=== PATIENT | female | born 1955 | race Hispanic/Latino ===

== ENCOUNTER 2017-08-13 22:05 | Inpatient (IN) | payer MEDICARE, BC ==
[~2017-08-13] VITALS: Ht 149.9 cm; Wt 74.1 kg
[~2017-08-13 22:05] MED LIST: AMLODIPINE PO; ASPIRIN81 M1 PO; ATENOLOL; HYDROCODON-ACE1 EA11 PO; IMDUR30 MG PO; NORVASC5 MG PO; OMEPRAZOLE; SENSIPAR; TRAMADOL; TRAMADOL-ACETAMI1 EA PO; XANAX0.25 MG PO
[2017-08-13] MEDS ORDERED: PANTOPRAZOLE 40 MG 10ML VIAL IV STA (22:19)
[2017-08-13] MEDS ORDERED: FUROSEMIDE INJ 10 MG/ML 2 ML VIAL IV PRN ×2 (22:30→23:15)
[2017-08-13] MEDS ORDERED: SODIUM CHLORIDE 0.9% 250ML 250 ML IV ONE ×3 (22:30→23:15)
[2017-08-13 22:46] LABS: BASOPHILS % 0.1 % (0.0-1.0); EOSINOPHILS % 0.1 % (0.0-6.0); LYMPHOCYTES # (AUTO) 1.7 (1.0-3.2); LYMPHOCYTES % 6.3 % (18.0-39.1); MEAN CORPUSCULAR HEMOGLOBIN 29.1 pg (28-32); MEAN CORPUSCULAR HGB CONC 31.2 g/dL (31-35); MEAN CORPUSCULAR VOLUME 93.3 fL (81-99); MONOCYTES # (AUTO) 1.7 (0.2-0.8); MONOCYTES % 6.6 % (4.4-11.3); NEUTROPHILS # (AUTO) 22.1 (2.1-6.9); NEUTROPHILS % 85.1 % (38.7-80.0); PLATELET COUNT 397 x10e3/uL (140-360); RED BLOOD COUNT 1.34 x10e6/uL (3.6-5.1); RED CELL DISTRIBUTION WIDTH 18.9 % (11.7-14.4)
--- NOTE | 2017-08-13 22:53 | Diagnostic Imaging Report ---
CHEST SINGLE (PORTABLE), 08/13/2017 10:19 PM Technique: CHEST SINGLE (PORTABLE) Comparison: 07/09/2012. Clinical history: \S\GI BLEED, ESRD ON HD W/ LOW O2 SAT \S\20170813 \S\2230 Findings: See Impression. Left axillary vascular stent noted. Impression: 1. Mildly enlarged cardiomediastinal silhouette. Aortic calcifications. 2. Central vascular congestion. No consolidation. 3. No effusion or pneumothorax. 4. Interval erosive change and remodeling of the left humeral head. Consider follow up shoulder radiographs, as clinically warranted. Signed by: Dr Benita Mccall MD on 08/13/2017 10:49 PM
[2017-08-13 22:57] LABS: HEMATOCRIT 12.5 % (34.2-44.1); HEMOGLOBIN 3.9 g/dL (12.0-16.0)
[2017-08-13 23:02] LABS: INR 2.06; PROTHROMBIN TIME 21.8 seconds (11.9-14.5)
[2017-08-13 23:03] LABS: PARTIAL THROMBOPLASTIN TIME 40.2 seconds (23.8-35.5)
[2017-08-13 23:09] LABS: ALBUMIN 2.2 g/dL (3.5-5.0); ALBUMIN/GLOBULIN RATIO 0.6 (0.8-2.0); ANION GAP 27.3 mmol/L (8-16); CALCIUM 8.5 mg/dL (8.4-10.2); CREATINE KINASE MB 3.4 ng/mL (0-5.0); CREATININE, SERUM 5.86 mg/dL (0.57-1.11); MAGNESIUM 1.4 MG/DL (1.3-2.1)
[2017-08-13] MEDS ORDERED: LOSARTAN POTAS100 MG PO (23:09)
[2017-08-13] MEDS ORDERED: AMLODIPINE BESY10 MG PO (23:09)
[2017-08-13] MEDS ORDERED: GABAPENTIN100 MG PO (23:09)
[2017-08-13] MEDS ORDERED: [UNRECOGNIZED DRUG - OTHER] PO (23:09)
[2017-08-13] MEDS ORDERED: CLONIDINE HCL0.1 MG PO (23:14)
[2017-08-13] MEDS ORDERED: ELIQUIS PO (23:14)
[2017-08-13] MEDS ORDERED: CITALOPRAM HBR20 MG PO (23:14)
[2017-08-13] MEDS ORDERED: OMEPRAZOLE40 MG PO (23:14)
[2017-08-13] MEDS ORDERED: CYMBALTA60 MG PO (23:14)
[2017-08-13] MEDS ORDERED: PRAVASTATIN SOD40 MG PO (23:14)
[2017-08-13] MEDS ORDERED: ZETIA10 MG PO (23:14)
[2017-08-13] MEDS ORDERED: SENSIPAR30 MG PO (23:14)
[2017-08-13] MEDS ORDERED: PLAVIX75 MG PO (23:14)
[2017-08-13 23:15] LABS: B-TYPE NATRIURETIC PEPTIDE2 870.6 pg/mL (0-100)
[2017-08-13 23:28] LABS: POTASSIUM 5.3 mmol/L (3.5-5.1)
[2017-08-13] MEDS ORDERED: SODIUM CHLORIDE 0.9% 1000ML 1,000 ML ONE (23:29)
[2017-08-13 23:37] LABS: ABG BASE EXCESS 23.8 mmol/L (-2 - 3); ABG HCO3 1 mmol/L (23-28); ABG PCO2 31 mmHg (41-51); ABG PO2 349 mmHg (80-105)
[2017-08-14] VITALS (102 sets, daily range): BP systolic 53–167; BP diastolic 24–107
[2017-08-14] MEDS ORDERED: CEFEPIME HCL 2 GM VIAL IV STA (00:28)
[2017-08-14] MEDS ORDERED: VANCOMYCIN 1GM/NS 250 ML 250 ML IV STA (00:28)
[2017-08-14 00:33] LABS: BAND NEUTROPHILS % (MANUAL) 1 %; LYMPHOCYTES % (MANUAL) 5 % (19-48); MONOCYTES % (MANUAL) 4 % (3.4-9.0); NEUTROPHILS % (MANUAL) 90 % (40-74); POLYCHROMASIA FEW
[2017-08-14 00:34] LABS: ANISOCYTOSIS MODERATE; HYPOCHROMASIA SLIGHT; PLATELET ESTIMATE SLIGHTLY INCREASED; PLATELET MORPHOLOGY COMMENT NORMAL; RBC MORPHOLOGY COMMENT ABNORMAL
[2017-08-14] MEDS ORDERED: PANTOPRAZOLE INJ 40 MG in SODIUM CHLORIDE 0.9% 50ML 50 ML IV STA (00:51)
[2017-08-14] MEDS ORDERED: PANTOPRAZOLE 40 MG 10ML VIAL ONE (01:28)
--- OUTSIDE RECORDS SUMMARY | 2017-08-14 01:31 | XMS REPORT ---
Author Author [facility] Address Unknown Phone Unavailable Care Team Providers Care Pneumatic Tester Name Role Phone BERNARD LOBO Unavailable Unavailable Problems This patient has no known problems. Allergies, Adverse Reactions, Alerts This patient has no known allergies or adverse reactions. Medications This patient has no known medications. Results Test Description Test Time Test Comments Text Results Atomic Results Result Comments CHEST SINGLE (PORTABLE) [place] [address] Patient Name: JULEE SCHMID MR #: [id number] : 1955 Age/Sex: 61/F Req #: [id number] Adm Physician: Ordered by: BERNARD LOBO MD Report #: [id number] Location: ER Room/Bed: Procedure: [id number] DX/CHEST SINGLE (PORTABLE) Exam Date: 08/13/17 Exam Time: 2230 REPORT STATUS: Signed CHEST SINGLE ( PORTABLE), 08/13/2017 10:19 PM Technique: CHEST SINGLE (PORTABLE) Comparison: 07/09/2012. Clinical history: S GI BLEED, ESRD ON HD W/ LOW O2 SAT S [id number] S 2230 Findings: See Impression. Left axillary vascular stent noted. Impression: 1. Mildly enlarged cardiomediastinal silhouette. Aortic calcifications. 2. Central vascular congestion. No consolidation. 3. No effusion or pneumothorax. 4. Interval erosive change and remodeling of the left humeral head. Consider follow up shoulder radiographs, as clinically warranted. Signed by: Dr Hadley Mccall MD on 10:49 PM Dictated By: HADLEY MCCALL MD 48 Transcribed By: HERNANDEZ on 08/13/172248 COPY TO: BERNARD LOBO MD
--- NOTE | 2017-08-14 01:44 | Diagnostic Imaging Report ---
History:AMS Comparison studies:None Technique: Axial images were obtained from the skull base to the vertex. Coronal and sagittal images reconstructed from the axial data. Intravenous contrast: None Findings: Scalp/skull: No abnormalities. Extra-axial spaces: No masses. No fluid collections. Brain sulci: Mildly prominent. Ventricles: Mild compensatory dilatation. No hydrocephalus. Parenchyma: Follow-up hypodensities in the supratentorial white matter are small vessel ischemic changes. Cortical encephalomalacic changes in the superomedial left occipital lobe are the result of an old left [employer] vascular insult. It is associated with regional volume loss and with gliotic changes in the underlying white matter No additional abnormal densities, masses, hemorrhage, acute or chronic cortical vascular insults. Sellar/suprasellar region: No abnormalities. Craniocervical junction: Patent foramen magnum. No Chiari one malformation. Incidental findings: Atherosclerotic calcifications in the carotid siphons and vertebral arteries. Impression: No acute abnormalities. Chronic findings: 1. Mild generalized volume loss. 2. Mild supratentorial white matter small vessel ischemic changes. 3. Cortical left [employer] vascular insult (superomedial occipital lobe) Signed by: Dr. Rodrick Powell M.D. on 08/14/2017 1:41 AM
[2017-08-14] MEDS ORDERED: SODIUM CHLORIDE 0.9% 250ML 250 ML ONE (03:44)
[2017-08-14] MEDS ORDERED: ACETAMINOPHEN 1000 MG/100 ML 100 ML IV ONE (06:12)
[2017-08-14] MEDS ORDERED: PANTOPRAZOL 40MG/SOD CHL 0.9% 50 ML IV ONE (06:36)
[2017-08-14] MEDS ORDERED: PANTOPRAZOLE 40 MG 10ML VIAL IV SCH (06:45)
[2017-08-14] MEDS: ACETAMINOPHEN 1000 MG/100 ML IV PRN ×2 (07:00→12:32)
[2017-08-14] MEDS: PANTOPRAZOL 40MG/SOD CHL 0.9% 50 ML IV SCH ×3 (07:00→17:00)
[2017-08-14] MEDS ORDERED: AMINOCAPROIC ACID IV SCH (09:00)
[2017-08-14] MEDS ORDERED: SODIUM CHLORIDE 0.9% IV SCH (09:00)
[2017-08-14 09:19] LABS: BASOPHILS % 0.2 % (0.0-1.0); EOSINOPHILS % 0.2 % (0.0-6.0); LYMPHOCYTES # (AUTO) 0.3 (1.0-3.2); LYMPHOCYTES % 1.6 % (18.0-39.1); MEAN CORPUSCULAR HGB CONC 34.1 g/dL (31-35); MEAN CORPUSCULAR VOLUME 90.8 fL (81-99); MONOCYTES # (AUTO) 0.5 (0.2-0.8); MONOCYTES % 2.7 % (4.4-11.3); NEUTROPHILS % 94.5 % (38.7-80.0); PLATELET COUNT 337 x10e3/uL (140-360); RED BLOOD COUNT 1.84 x10e6/uL (3.6-5.1); RED CELL DISTRIBUTION WIDTH 15.9 % (11.7-14.4)
[2017-08-14] MEDS ORDERED: NOREPINEPHRINE 8 MG/D5W 250 ML 250 ML IV PRN (09:19)
[2017-08-14 09:24] LABS: HEMATOCRIT 16.7 % (34.2-44.1); HEMOGLOBIN 5.7 g/dL (12.0-16.0)
[2017-08-14] MEDS ORDERED: NOREPINEPHRINE 8 MG/D5W 250 ML 250 ML ONE (09:26)
[2017-08-14] MEDS ORDERED: SODIUM CHLORIDE 0.9% 500ML 500 ML ONE (09:26)
[2017-08-14 09:40] LABS: INR 2.03; PROTHROMBIN TIME 21.6 seconds (11.9-14.5)
[2017-08-14 09:41] LABS: PARTIAL THROMBOPLASTIN TIME 43.6 seconds (23.8-35.5)
[2017-08-14 09:46] LABS: CREATINE KINASE MB 3.3 ng/mL (0-5.0)
--- NOTE | 2017-08-14 10:05 | Consultation ---
DATE OF CONSULTATION: August 14, 2017 REASON FOR CONSULTATION: History of AFib, patient on Plavix and Eliquis. CONSULTING PHYSICIAN: Dr. Hernandez HPI: This is a 61-year-old female that presented with complaint of dark stool. According to the patient and family at the bedside, she had dark tarry stool times 3 days and was brought to the emergency room for evaluation. She was recently discharged from [facility] after undergoing back surgery with Dr. Candelario. In the ER, she was found to have a hemoglobin of 3.1. She has a history of paroxysmal AFib and was on Plavix and Eliquis. She denies any chest pain, any palpitation, any diaphoresis or headache. Troponin was borderline. EKG showed normal sinus rhythm with no ST abnormalities. PAST MEDICAL HISTORY: Paroxysmal AFib; obesity; CHF; degenerative joint disease; end-stage renal disease, on dialysis; hypertension; chronic back pain; history of CVA; CAD; hyperlipidemia; and hyperparathyroidism. PAST SURGICAL HISTORY: Cholecystectomy, , left knee surgery, and recent back surgery. FAMILY HISTORY: Positive for diabetes. SOCIAL HISTORY: No smoking, no drinking. She lives at home with the family. MEDICATIONS: See med list. ALLERGIES: SHE IS ALLERGIC TO LORAZEPAM. REVIEW OF THE SYSTEMS: Negative except those mentioned above. PHYSICAL EXAMINATION: VITAL SIGNS: Temperature 97.9, heart rate 90, blood pressure 95/51, respiration 20, oxygen saturation 100% on 3 liters nasal cannula. GENERAL: She appears weak, lethargic, but alert and oriented. HEENT: Mucous membranes dry. NECK: Supple. LUNGS: Bilaterally clear to auscultation. CARDIOVASCULAR: S1 and S2 present. ABDOMEN: Soft. NEUROLOGICAL: Intact. EXTREMITIES: With no edema. LABS: Sodium 136, potassium 5.3, chloride 95, CO2 19, BUN 70, creatinine 5.86, glucose 88. White blood cell 26.0, hemoglobin 3.9, hematocrit 12.5, platelet 397,000. PT 21.8, PTT 40.2, INR 2.06. IMPRESSION: 1. Gastrointestinal bleed. 2. Anemia. 3. History of paroxysmal atrial fibrillation. 4. End-stage renal disease, on dialysis. 5. Borderline troponin. 6. Obesity. 7. History of coronary artery disease. ASSESSMENT AND PLAN: Her heart rate is in normal sinus rhythm with controlled rate. Eliquis and Plavix have been discontinued. She is getting blood transfusions. Jw osborne per hematology. Will go ahead and get an echo to reassess the LV and the valve function. Further cardiac workup pending clinical course. Thank you for this consultation. Dictated by: Garry Atkins NP Job#: [id number]
--- NOTE | 2017-08-14 11:21 | Consultation ---
DATE OF CONSULTATION: August 14, 2017 HISTORY OF PRESENT ILLNESS: I just discovered the patient is in the ICU and admitted. This 61-year-old female is well known to me. Recently discharged from [facility] with successful rehabilitation therapy and was on dialysis. She has end-stage renal disease. Came in with black stools that started yesterday. Found to have significantly low hemoglobin. She is on her 3rd unit of packed RBCs. Initial hemoglobin was 3.9, up to 5.7. She had PT of 21 with an INR of 2.06. Chemistry shows potassium 5.3, bicarbonate 19, creatinine 5.86. Chest x-ray relatively negative for any infiltrate or effusions. She is currently on oxygen, quite drowsy, arousable. Unable to get review of systems due to medical condition. No apparent respiratory distress. ALLERGIES: LORAZEPAM. SOCIAL HISTORY: Does not smoke or drink. Family by bedside. CURRENT MEDICATIONS: Patient on 3rd unit of packed RBCs and received Amicar once. She is on Protonix drip. She received 2 grams cefepime times 1. FAMILY HISTORY: Significant for hypertension. PAST HISTORY: Significant for end-stage renal disease, multiple comorbids, coronary artery disease, hypertension, secondary hyperparathyroidism, anemia of chronic kidney disease. PHYSICAL EXAMINATION GENERAL: Patient on oxygen, lying supine, in no apparent distress. VITALS: Blood pressure 94/44. Pulse rate 88. Afebrile. Oxygen saturation 100% on 100% nonrebreather. HEAD AND NECK: Corneas clear. Oral mucosa not examined. Neck veins slightly distended lying supine. LUNGS: End-expiratory rhonchi with scattered rales in lower third. HEART: S1 and S2 audible. ABDOMEN: Otherwise distended, soft, nontender. LOWER EXTREMITIES: No edema. IMPRESSION 1. Gastrointestinal bleed with anemia. 2. Coagulopathy. 3. Hypotension related to hemorrhage. 4. End-stage renal disease. 5. Hyperkalemia. PLAN: Stat urgent hemodialysis. Nurse notified. Will discuss with GI and cardiology. Please see orders. Thank you. Job#: [id number]
[2017-08-14] MEDS ORDERED: DIPHENHYDRAMINE HCL INJ 50 MG/ML VIAL IV ONE (11:26)
[2017-08-14] MEDS ORDERED: DIPHENHYDRAMINE HCL INJ 50 MG/ML VIAL ONE (11:26)
[2017-08-14 11:45] LABS: BAND NEUTROPHILS % (MANUAL) 4 %; LYMPHOCYTES % (MANUAL) 3 % (19-48); MONOCYTES % (MANUAL) 1 % (3.4-9.0); NEUTROPHILS % (MANUAL) 92 % (40-74); NUCLEATED RED BLOOD CELLS 1
[2017-08-14 11:46] LABS: ANISOCYTOSIS SLIGHT; HYPOCHROMASIA MODERATE; PLATELET ESTIMATE ADEQUATE; PLATELET MORPHOLOGY COMMENT FEW GIANT
[2017-08-14 11:47] LABS: POLYCHROMASIA FEW; RBC MORPHOLOGY COMMENT ABNORMAL
[2017-08-14 12:24] LABS: ANION GAP 19.4 mmol/L (8-16); CALCIUM 8.5 mg/dL (8.4-10.2); CREATININE, SERUM 5.97 mg/dL (0.57-1.11); POTASSIUM 5.4 mmol/L (3.5-5.1)
[2017-08-14] MEDS ORDERED: SODIUM CHLORIDE 0.9% 1000ML 2,000 ML ONE (13:15)
[2017-08-14] MEDS ORDERED: MANNITOL 25% 12.5GM/50ML 100 ML ONE (13:15)
[2017-08-14] MEDS ORDERED: ALBUMIN HUMAN 100 ML IV ONE (13:16)
[2017-08-14 13:32] LABS: HEMOGLOBIN 7.1 g/dL (12.0-16.0)
[2017-08-14 13:39] LABS: HEMATOCRIT 20.5 % (34.2-44.1)
[2017-08-14 15:40] LABS: BASOPHILS # (AUTO) 0.1 (0.0-0.1); BASOPHILS % 0.3 % (0.0-1.0); EOSINOPHILS # (AUTO) 0.1 (0.0-0.4); EOSINOPHILS % 0.2 % (0.0-6.0); HEMOGLOBIN 7.9 g/dL (12.0-16.0); LYMPHOCYTES # (AUTO) 0.7 (1.0-3.2); LYMPHOCYTES % 2.8 % (18.0-39.1); MEAN CORPUSCULAR HGB CONC 34.6 g/dL (31-35); MONOCYTES # (AUTO) 1.3 (0.2-0.8); MONOCYTES % 5.6 % (4.4-11.3); NEUTROPHILS # (AUTO) 21.7 (2.1-6.9); NEUTROPHILS % 90.1 % (38.7-80.0); PLATELET COUNT 585 x10e3/uL (140-360); RED BLOOD COUNT 2.63 x10e6/uL (3.6-5.1)
[2017-08-14 15:43] LABS: HEMATOCRIT 22.8 % (34.2-44.1)
[2017-08-14] MEDS ORDERED: METOPROLOL TARTRATE INJ 1 MG/ML VIAL IV PRN (17:30)
[2017-08-14] MEDS ORDERED: VANCOMYCIN 1GM/NS 250 ML 250 ML IV ONE (18:45)
[2017-08-14] MEDS ORDERED: CEFEPIME HCL 1 GM VIAL IV ONE (18:45)
[2017-08-14 19:25] LABS: CREATINE KINASE MB 1.9 ng/mL (0-4.3)
[2017-08-14 20:15] LABS: BASOPHILS # (AUTO) 0.1 (0.0-0.1); BASOPHILS % 0.4 % (0.0-1.0); EOSINOPHILS # (AUTO) 0.1 (0.0-0.4); EOSINOPHILS % 0.6 % (0.0-6.0); HEMOGLOBIN 7.6 g/dL (12.0-16.0); LYMPHOCYTES # (AUTO) 0.7 (1.0-3.2); MEAN CORPUSCULAR HEMOGLOBIN 30.6 pg (28-32); MEAN CORPUSCULAR HGB CONC 34.5 g/dL (31-35); MEAN CORPUSCULAR VOLUME 88.7 fL (81-99); MONOCYTES # (AUTO) 1.4 (0.2-0.8); MONOCYTES % 6.3 % (4.4-11.3); NEUTROPHILS # (AUTO) 19.7 (2.1-6.9); NEUTROPHILS % 89.1 % (38.7-80.0); PLATELET COUNT 473 x10e3/uL (140-360); RED BLOOD COUNT 2.48 x10e6/uL (3.6-5.1); RED CELL DISTRIBUTION WIDTH 16.2 % (11.7-14.4)
[2017-08-14] MEDS ORDERED: SODIUM CHLORIDE 0.9% 250ML 250 ML IV ONE (21:15)
[2017-08-14] MEDS ORDERED: CLONAZEPAM 0.5 MG TAB PO ONE (21:30)
[2017-08-15] VITALS (90 sets, daily range): BP systolic 82–150; BP diastolic 41–113
[2017-08-15] MEDS: PANTOPRAZOL 40MG/SOD CHL 0.9% 50 ML IV SCH ×6 (00:55→23:00)
[2017-08-15] MEDS: ACETAMINOPHEN/CODEINE 300MG - 30MG TAB PO PRN ×4 (02:12→23:09)
--- NOTE | 2017-08-15 04:19 | Consultation ---
DATE OF CONSULTATION: REASON FOR CONSULTATION: Leukocytosis, concern about sepsis. HISTORY OF PRESENT ILLNESS: This patient who is a 61-year-old female with history of obesity; history of end-stage renal disease, on hemodialysis. The patient was recently in the hospital in [place]. She then went to rehab. She went there, from there she went home, she was there for a few days. She came to emergency room at [facility] with altered status. Patient was admitted. According to the family, came early hours of August 14, I saw her in the evening. The patient was in the hospital where she had back surgery with Dr. Candelario as mentioned above, then she went to rehab. She is coming now with altered mental status. In the emergency room, she was evaluated. She had hemoglobin of 3.1. She received 4 units of blood and after the second one, she got fever and chills. The patient who is currently in the intensive care unit, on BiPAP, alert and follows command. She does have history of obesity, atrial fibrillation. She has been on Plavix and Eliquis. She also has history of congestive heart failure; degenerative joint disease; end-stage renal disease, on hemodialysis; hypertension; chronic back pain; history of CVA; history of coronary artery disease; history of hyperlipidemia; history of hyperparathyroidism. PAST SURGICAL HISTORY: Cholecystectomy, , left knee surgery, and recent back surgery as mentioned above. ALLERGIES: NKA. SOCIAL HISTORY: There is no smoking, drug abuse, alcohol abuse. FAMILY HISTORY: Hypertension. REVIEW OF SYSTEMS: At present time: HEENT: There is no headache or visual changes. No hearing changes. GI: There is currently no nausea, no vomiting, no diarrhea. CARDIAC: There is no arrhythmia. NEURO: No seizure activity. SKIN: There is no rash. LABORATORY DATA: Reviewed. Family at the bedside. Her daughter provided most of the history. I also reviewed her record. ALLERGIES: LORAZEPAM. IMPRESSION: 1. Gastrointestinal anemia. Continue blood transfusion. Gastroenterology has been consulted. 2. Leukocytosis, reactive. Concern about aspiration, concern about sepsis. Blood cultures have been ordered. Will put her on cefepime and vancomycin with her renal dose. 3. Congestive heart failure. 4. History of atrial fibrillation. 5. Discussed with the family. Discussed with the nurse. Will follow with you. Thank you so much for asking me to see this patient. Job#: [id number]
[2017-08-15 06:20] LABS: BASOPHILS # (AUTO) 0.1 (0.0-0.1); BASOPHILS % 0.3 % (0.0-1.0); EOSINOPHILS # (AUTO) 0.2 (0.0-0.4); HEMATOCRIT 24.3 % (34.2-44.1); HEMOGLOBIN 8.1 g/dL (12.0-16.0); LYMPHOCYTES # (AUTO) 0.6 (1.0-3.2); LYMPHOCYTES % 3.7 % (18.0-39.1); MEAN CORPUSCULAR HEMOGLOBIN 29.1 pg (28-32); MEAN CORPUSCULAR HGB CONC 33.3 g/dL (31-35); MEAN CORPUSCULAR VOLUME 87.4 fL (81-99); MONOCYTES # (AUTO) 1.4 (0.2-0.8); MONOCYTES % 8.2 % (4.4-11.3); NEUTROPHILS # (AUTO) 14.9 (2.1-6.9); NEUTROPHILS % 86.2 % (38.7-80.0); PLATELET COUNT 379 x10e3/uL (140-360); RED BLOOD COUNT 2.78 x10e6/uL (3.6-5.1); RED CELL DISTRIBUTION WIDTH 17.7 % (11.7-14.4)
[2017-08-15 06:52] LABS: ALBUMIN 2.4 g/dL (3.5-5.0); ALBUMIN/GLOBULIN RATIO 0.6 (0.8-2.0); ANION GAP 16.8 mmol/L (8-16); CALCIUM 8.5 mg/dL (8.4-10.2); CREATININE, SERUM 3.53 mg/dL (0.57-1.11); MAGNESIUM 1.7 MG/DL (1.3-2.1); POTASSIUM 3.8 mmol/L (3.5-5.1)
[2017-08-15] MEDS: SUCRALFATE 1 GM TAB PO SCH ×4 (07:30→20:47)
[2017-08-15] MEDS ORDERED: PHYTONADIONE 10 MG/ML AMP IV ONE (09:00)
--- NOTE | 2017-08-15 09:08 | Progress Note ---
DATE: August 15, 2017 TIME OF SERVICE: 7 a.m. OVERNIGHT: No events. REVIEW OF SYSTEMS: Patient denies any chest pain or shortness of breath. VITAL SIGNS: Reviewed. OBJECTIVE GENERAL: A tired-appearing woman resting in bed. HEENT: Anicteric. CARDIOVASCULAR: Normal S1 and S2. LUNGS: Moderate breath sounds. ABDOMEN: Soft, nontender, nondistended. EXTREMITIES: No edema. SKIN: Dry. PSYCHIATRIC: Normal affect. LABS: Reviewed. MEDICATIONS: Reviewed. ASSESSMENT AND PLAN: A 61-year-old woman. 1. Gastrointestinal bleed. 2. Coagulopathy. 3. Chronic atrial fibrillation. 4. End-stage renal disease on hemodialysis. 5. Severe normocytic anemia, status post 5 units of packed red blood cell transfusion. 6. Hyperbilirubinemia. 7. History of coronary artery disease. 8. Erosive changes of the left humeral head. 9. Sepsis. PLAN 1. Continue IV PPI. 2. Continue aminocaproic acid drip. 3. Continue sucralfate. 4. Continue IV cefepime and vancomycin. 5. All cultures remain negative. 6. Monitor closely in the ICU. 7. Dialysis planned for today. 8. I will discuss the case with the patient and family member at the bedside. Critical care time more than 35 minutes. Job#: [id number]
[2017-08-15] MEDS ORDERED: PHYTONADIONE 10MG/ML 10 MG in SODIUM CHLORIDE 0.9% 50ML 50 ML IV ONE (10:30)
[2017-08-15 10:41] LABS: MEAN CORPUSCULAR VOLUME 86.7 fL (81-99)
[2017-08-15 11:55] LABS: BASOPHILS % 0.2 % (0.0-1.0); EOSINOPHILS # (AUTO) 0.3 (0.0-0.4); EOSINOPHILS % 1.7 % (0.0-6.0); HEMATOCRIT 24.9 % (34.2-44.1); HEMOGLOBIN 8.5 g/dL (12.0-16.0); LYMPHOCYTES # (AUTO) 0.8 (1.0-3.2); LYMPHOCYTES % 4.4 % (18.0-39.1); MEAN CORPUSCULAR HEMOGLOBIN 29.4 pg (28-32); MEAN CORPUSCULAR HGB CONC 34.1 g/dL (31-35); MEAN CORPUSCULAR VOLUME 86.2 fL (81-99); MONOCYTES # (AUTO) 1.3 (0.2-0.8); MONOCYTES % 7.6 % (4.4-11.3); NEUTROPHILS # (AUTO) 14.8 (2.1-6.9); NEUTROPHILS % 85.1 % (38.7-80.0); PLATELET COUNT 369 x10e3/uL (140-360); RED BLOOD COUNT 2.89 x10e6/uL (3.6-5.1); RED CELL DISTRIBUTION WIDTH 18.3 % (11.7-14.4)
[2017-08-15] MEDS ORDERED: KETAMINE HCL INJ 50 MG/ML 10 ML VIAL ONE (12:10)
[2017-08-15] MEDS ORDERED: PROPOFOL IV EMULSION 10 MG/ML 50 ML VIAL ONE (17:47)
--- NOTE | 2017-08-15 17:53 | Progress Note ---
DATE: August 15, 2017 NEUROLOGICAL PROGRESS NOTE Age 61. At the present time, the patient's vital signs are stable. The patient is awake. She is sitting on the side of the bed. Her speech is clear, no dysarthria or dysphagia. She follows commands very well. She is oriented. She is complaining of pain in the left shoulder and the entire left arm. Pupils are both equal and reactive. Extraocular movements are full. Visual field: There seems to be right homonymous hemianopsia secondary from previous stroke. The patient is complaining of severe pain in the left shoulder. It is difficult to move. She is moving quite well the right arm and both legs. Laboratory workup has been reviewed. IMPRESSION 1. Metabolic encephalopathy, improved. 2. Gastrointestinal bleed. 3. Chronic atrial fibrillation. 4. End-stage renal disease. 5. Coronary artery disease. 6. Severe pain in the left shoulder, possible rotator cuff, to be evaluated per Orthopedics. Job#: [id number] EV
[2017-08-15 18:41] LABS: BASOPHILS # (AUTO) 0.1 (0.0-0.1); BASOPHILS % 0.3 % (0.0-1.0); EOSINOPHILS # (AUTO) 0.2 (0.0-0.4); EOSINOPHILS % 1.3 % (0.0-6.0); HEMATOCRIT 25.6 % (34.2-44.1); HEMOGLOBIN 8.7 g/dL (12.0-16.0); LYMPHOCYTES # (AUTO) 0.6 (1.0-3.2); LYMPHOCYTES % 3.7 % (18.0-39.1); MEAN CORPUSCULAR HEMOGLOBIN 29.9 pg (28-32); MONOCYTES # (AUTO) 1.5 (0.2-0.8); MONOCYTES % 9.2 % (4.4-11.3); NEUTROPHILS # (AUTO) 14.3 (2.1-6.9); NEUTROPHILS % 84.9 % (38.7-80.0); PLATELET COUNT 373 x10e3/uL (140-360); RED BLOOD COUNT 2.91 x10e6/uL (3.6-5.1); RED CELL DISTRIBUTION WIDTH 18.5 % (11.7-14.4)
[2017-08-15] MEDS: CEFEPIME HCL 1 GM VIAL IV SCH (20:10)
[2017-08-15] MEDS: MELATONIN 5 MG TABLET PO SCH (20:47)
--- NOTE | 2017-08-15 21:46 | Consultation ---
DATE OF CONSULTATION: August 14, 2017, at 4:30 in the evening. NEUROLOGICAL CONSULTATION A patient of Dr. Bo Hernandez. REASON FOR CONSULTATION: Altered mental status. HISTORY OF PRESENT ILLNESS: Patient was admitted with altered mental status and anemia probably secondary to GI bleeding. The patient has a previous history of a stroke in 2012 which had compromised the left occipital lobe, apparently has residual right homonymous hemianopsia. The patient has multiple medical problems including: Paroxysmal atrial fibrillation, obesity, end-stage renal failure on dialysis at the present time, hypertension, chronic back pain, previous history of neurosurgical low back surgery for a disk, coronary artery disease, hyperlipidemia, and arthritis of the knee and the shoulder. Past surgical: , left knee surgery, recent back surgery, and cholecystectomy. ALLERGIES: LORAZEPAM. MEDICATION: List has been reviewed. SOCIAL HISTORY: No smoking, no drinking. She lives at home with the family. REVIEW OF SYSTEMS: Patient unable to cooperate because of the altered mental status. NEUROLOGICAL EXAMINATION Vital signs are stable. Patient on stimulation opens her eyes. She is able to look around. She is able to follow commands. Pupils were both equal and reactive. External ocular movements were full. No facial weakness. There is slurred speech. There seems to be some weakness in the left arm, but it is difficult to examine because there is a lot of pain and she does not want to move the arm because of problem with the left shoulder. The right arm is normal strength proximal and distal muscles. Lower extremities normal strength. Flexion of the hips 5/5. Dorsiflexion of the ankles 5/5. Deep tendon reflexes: Triceps, biceps, radials 1+. Knee jerks 1+. Ankle jerks absent bilaterally. LABORATORY WORKUP: WBC with a hemoglobin 7.9, hematocrit of 22.8, platelets 585. Chemistry: Sodium 136, potassium 5.4, BUN , creatinine is 5.97, estimated GFR is 7. At the present time, the patient is in dialysis and the patient has received several units of blood for the anemia, and the platform beater is in the case. IMPRESSION 1. Metabolic encephalopathy, multifactorial. 2. End-stage renal failure. 3. Hypertension. 4. Chronic atrial fibrillation. 5. Congestive heart failure. 6. Left shoulder pain. In the meantime, will follow closely and will discuss with the attending physician. Job#: [id number] EV
[2017-08-16] VITALS (61 sets, daily range): BP systolic 75–134; BP diastolic 46–101
[2017-08-16] MEDS: PANTOPRAZOL 40MG/SOD CHL 0.9% 50 ML IV SCH ×6 (02:16→23:02)
[2017-08-16 06:17] LABS: BASOPHILS # (AUTO) 0.1 (0.0-0.1); BASOPHILS % 0.4 % (0.0-1.0); EOSINOPHILS # (AUTO) 0.3 (0.0-0.4); EOSINOPHILS % 2.1 % (0.0-6.0); HEMATOCRIT 24.4 % (34.2-44.1); HEMOGLOBIN 8.1 g/dL (12.0-16.0); LYMPHOCYTES # (AUTO) 0.8 (1.0-3.2); LYMPHOCYTES % 6.2 % (18.0-39.1); MEAN CORPUSCULAR HEMOGLOBIN 29.2 pg (28-32); MEAN CORPUSCULAR HGB CONC 33.2 g/dL (31-35); MEAN CORPUSCULAR VOLUME 88.1 fL (81-99); MONOCYTES # (AUTO) 1.2 (0.2-0.8); MONOCYTES % 9.1 % (4.4-11.3); NEUTROPHILS # (AUTO) 10.9 (2.1-6.9); NEUTROPHILS % 81.7 % (38.7-80.0); PLATELET COUNT 341 x10e3/uL (140-360); RED BLOOD COUNT 2.77 x10e6/uL (3.6-5.1); RED CELL DISTRIBUTION WIDTH 18.3 % (11.7-14.4)
[2017-08-16 06:52] LABS: ALBUMIN 2.4 g/dL (3.5-5.0); ALBUMIN/GLOBULIN RATIO 0.6 (0.8-2.0); ANION GAP 15.7 mmol/L (8-16); CALCIUM 8.4 mg/dL (8.4-10.2); CREATININE, SERUM 2.72 mg/dL (0.57-1.11); POTASSIUM 3.7 mmol/L (3.5-5.1)
[2017-08-16] MEDS: SUCRALFATE 1 GM TAB PO SCH ×4 (07:30→20:04)
--- NOTE | 2017-08-16 08:10 | Progress Note ---
DATE: August 16, 2017 TIME OF SERVICE: 7:33 a.m. OVERNIGHT: Patient had EGD. No more bleeding. REVIEW OF SYSTEMS: Denies any chest pain. VITAL SIGNS: Reviewed. OBJECTIVE GENERAL: A tired-appearing woman resting in bed. HEENT: Anicteric. Pupils respond to light. No oral lesion. CARDIOVASCULAR: Normal S1 and S2. LUNGS: Moderate breath sounds. ABDOMEN: Soft, nontender, nondistended. EXTREMITIES: No edema or calf tenderness. NEUROLOGIC: Alert and oriented times 3, moving all extremities. SKIN: Dry. PSYCHIATRIC: Normal affect. LABS: Reviewed. MEDICATIONS: Reviewed. ASSESSMENT AND PLAN: A 61-year-old woman. 1. Mild gastritis. 2. Small sliding hiatal hernia. 3. Normal esophagus on esophagogastroduodenoscopy. 4. Nodule in the proximal part of what appears to be the duodenum. 5. Gastrointestinal bleed. 6. Coagulopathy. 7. Chronic atrial fibrillation. 8. End-stage renal disease on hemodialysis. 9. Severe normocytic anemia, status post 5 units of packed red blood cell transfusion. 10. Hyperbilirubinemia. 11. History of coronary artery disease. 12. Erosive changes of the left humeral head. 13. Sepsis. 14. Metabolic encephalopathy. PLAN 1. Continue IV PPI. 2. Aminocaproic acid is currently off. 3. Continue sucralfate. 4. Continue IV antibiotics, cefepime and vancomycin. 5. All cultures remain negative. 6. Patient received yesterday. 7. Leukocytosis continues to improve, today at 13,000. 8. Hemoglobin is stable at 8.1, yesterday 8.7. 9. Follow up echocardiogram. Unofficial reports shows left ventricular ejection fraction 50% to 55%. 10. Critical care time more than 35 minutes. Possible transfer to the [facility]. Job#: [id number]
[2017-08-16] MEDS: ACETAMINOPHEN/CODEINE 300MG - 30MG TAB PO PRN ×2 (09:35→22:54)
--- NOTE | 2017-08-16 10:49 | Operative Report ---
DATE OF PROCEDURE: August 15, 2017 REFERRING PHYSICIAN: Dr. Sandrita Garcia. PROCEDURE PERFORMED: Esophagogastroduodenoscopy INDICATIONS FOR ESOPHAGOGASTRODUODENOSCOPY: Severe anemia, melena. MEDICATION: Patient was done under MAC. Please see anesthesiologist's note. PROCEDURE: With the patient in the left lateral decubitus position, flexible fiberoptic Olympus gastroscope was introduced into the esophagus under direct visualization without any difficulty. The esophagus appeared to be within normal limits. The scope was then advanced with ease into the stomach traversing a small sliding hiatal hernia. Mucosa overlying the antrum and the body revealed some patchy erythema. Pylorus was intubated with ease and the scope was advanced all the way to the 2nd portion of the duodenum. A cluster of nodules was noted in the proximal 2nd portion that was biopsied. Duodenal bulb appeared to be grossly within normal limits. The scope was then withdrawn back into the stomach and retroflexed and the mucosa overlying the fundus and the cardia appeared to be within normal limits. The scope was then straightened out. The stomach was decompressed. Scope was subsequently withdrawn. Patient tolerated the procedure well. IMPRESSION: 1. Normal esophagus. 2. Small sliding hiatal hernia. 3. Gastritis, mild. 4. Cluster of nodules proximal 2nd portion biopsied. PLAN: Follow up histology. Initiate full liquid renal diet. Findings do not explain the patient's marked blood loss. Will obtain a GI bleed scan and if negative a colonoscopy is in order. Job#: [id number] cc:SANDRITA GARCIA MD
[2017-08-16 14:28] LABS: BASOPHILS % 0.4 % (0.0-1.0); EOSINOPHILS # (AUTO) 0.3 (0.0-0.4); EOSINOPHILS % 2.3 % (0.0-6.0); HEMOGLOBIN 8.5 g/dL (12.0-16.0); LYMPHOCYTES # (AUTO) 0.7 (1.0-3.2); LYMPHOCYTES % 6.1 % (18.0-39.1); MEAN CORPUSCULAR HEMOGLOBIN 30.2 pg (28-32); MONOCYTES # (AUTO) 1.1 (0.2-0.8); MONOCYTES % 9.4 % (4.4-11.3); NEUTROPHILS # (AUTO) 9.2 (2.1-6.9); NEUTROPHILS % 81.3 % (38.7-80.0); PLATELET COUNT 306 x10e3/uL (140-360); RED BLOOD COUNT 2.81 x10e6/uL (3.6-5.1); RED CELL DISTRIBUTION WIDTH 18.3 % (11.7-14.4)
[2017-08-16] MEDS ORDERED: VANCOMYCIN 1GM/NS 250 ML 250 ML IV SCH (18:00)
[2017-08-16] MEDS: MELATONIN 5 MG TABLET PO SCH (20:04)
[2017-08-16] MEDS: CEFEPIME HCL 1 GM VIAL IV SCH (20:04)
[2017-08-16 22:02] LABS: BASOPHILS % 0.4 % (0.0-1.0); EOSINOPHILS # (AUTO) 0.4 (0.0-0.4); EOSINOPHILS % 3.4 % (0.0-6.0); HEMATOCRIT 25.7 % (34.2-44.1); HEMOGLOBIN 8.6 g/dL (12.0-16.0); LYMPHOCYTES # (AUTO) 0.8 (1.0-3.2); LYMPHOCYTES % 7.7 % (18.0-39.1); MEAN CORPUSCULAR HEMOGLOBIN 29.8 pg (28-32); MEAN CORPUSCULAR HGB CONC 33.5 g/dL (31-35); MEAN CORPUSCULAR VOLUME 88.9 fL (81-99); MONOCYTES # (AUTO) 1.1 (0.2-0.8); MONOCYTES % 10.3 % (4.4-11.3); NEUTROPHILS # (AUTO) 8.1 (2.1-6.9); NEUTROPHILS % 77.3 % (38.7-80.0); PLATELET COUNT 360 x10e3/uL (140-360); RED BLOOD COUNT 2.89 x10e6/uL (3.6-5.1); RED CELL DISTRIBUTION WIDTH 18.2 % (11.7-14.4)
[2017-08-17] VITALS (7 sets, daily range): BP systolic 129–141; BP diastolic 64–82
[2017-08-17 02:07] LABS: BASOPHILS % 0.4 % (0.0-1.0); EOSINOPHILS # (AUTO) 0.3 (0.0-0.4); EOSINOPHILS % 3.2 % (0.0-6.0); HEMOGLOBIN 8.2 g/dL (12.0-16.0); LYMPHOCYTES # (AUTO) 0.8 (1.0-3.2); LYMPHOCYTES % 8.1 % (18.0-39.1); MEAN CORPUSCULAR HEMOGLOBIN 29.8 pg (28-32); MEAN CORPUSCULAR HGB CONC 32.8 g/dL (31-35); MEAN CORPUSCULAR VOLUME 90.9 fL (81-99); MONOCYTES # (AUTO) 0.9 (0.2-0.8); MONOCYTES % 9.6 % (4.4-11.3); NEUTROPHILS # (AUTO) 7.4 (2.1-6.9); NEUTROPHILS % 78.1 % (38.7-80.0); PLATELET COUNT 331 x10e3/uL (140-360); RED BLOOD COUNT 2.75 x10e6/uL (3.6-5.1); RED CELL DISTRIBUTION WIDTH 17.9 % (11.7-14.4)
[2017-08-17] MEDS: PANTOPRAZOL 40MG/SOD CHL 0.9% 50 ML IV SCH (05:02)
[2017-08-17 05:34] LABS: BASOPHILS # (AUTO) 0.1 (0.0-0.1); BASOPHILS % 0.5 % (0.0-1.0); EOSINOPHILS # (AUTO) 0.4 (0.0-0.4); EOSINOPHILS % 3.8 % (0.0-6.0); HEMATOCRIT 25.2 % (34.2-44.1); HEMOGLOBIN 8.3 g/dL (12.0-16.0); LYMPHOCYTES # (AUTO) 0.9 (1.0-3.2); LYMPHOCYTES % 9.2 % (18.0-39.1); MEAN CORPUSCULAR HEMOGLOBIN 29.4 pg (28-32); MEAN CORPUSCULAR HGB CONC 32.9 g/dL (31-35); MEAN CORPUSCULAR VOLUME 89.4 fL (81-99); MONOCYTES # (AUTO) 0.9 (0.2-0.8); MONOCYTES % 9.4 % (4.4-11.3); NEUTROPHILS # (AUTO) 7.2 (2.1-6.9); NEUTROPHILS % 76.4 % (38.7-80.0); PLATELET COUNT 345 x10e3/uL (140-360); RED BLOOD COUNT 2.82 x10e6/uL (3.6-5.1)
[2017-08-17] MEDS ORDERED: CLONIDINE HCL 0.1 MG TAB ONE (08:24)
[2017-08-17] MEDS ORDERED: DULOXETINE HCL 30 MG DELAYED RELEASE ONE (08:24)
[2017-08-17] MEDS ORDERED: CITALOPRAM HYDROBROMIDE 20 MG TAB ONE (08:25)
[2017-08-17] MEDS ORDERED: LOSARTAN POTASSIUM 100 MG TAB ONE (08:25)
[2017-08-17] MEDS ORDERED: AMLODIPINE BESYLATE 10 MG TAB ONE (08:25)
[2017-08-17] MEDS ORDERED: PANTOPRAZOLE SOD 40 MG TABEC ONE (08:28)
[2017-08-17] MEDS ORDERED: GABAPENTIN 100 MG CAP ONE (08:28)
[2017-08-17] MEDS: CITALOPRAM HYDROBROMIDE 20 MG TAB PO SCH (08:29)
[2017-08-17] MEDS: CLONIDINE HCL 0.1 MG TAB PO SCH ×2 (08:29→17:19)
[2017-08-17] MEDS: SUCRALFATE 1 GM TAB PO SCH ×4 (08:29→21:16)
[2017-08-17] MEDS: GABAPENTIN 100 MG CAP PO SCH ×2 (08:29→17:19)
[2017-08-17] MEDS: LOSARTAN POTASSIUM 100 MG TAB PO SCH (08:30)
[2017-08-17] MEDS: AMLODIPINE BESYLATE 10 MG TAB PO SCH (08:30)
[2017-08-17] MEDS: PANTOPRAZOLE SOD 40 MG TABEC PO SCH (08:30)
[2017-08-17] MEDS: DULOXETINE HCL 30 MG DELAYED RELEASE PO SCH (08:41)
[2017-08-17] MEDS ORDERED: DULOXETINE HCL PO SCH (09:00)
[2017-08-17] MEDS ORDERED: NON-FORMULARY MEDICATION (Pravastatin Sodium 1 TAB) PO SCH (09:00)
[2017-08-17] MEDS ORDERED: DULOXETINE HCL 20 MG DELAYED RELEASE PO SCH (09:00)
[2017-08-17 09:49] LABS: INR 1.18; PROTHROMBIN TIME 14.1 seconds (11.9-14.5)
[2017-08-17 11:36] LABS: BASOPHILS % 0.4 % (0.0-1.0); EOSINOPHILS # (AUTO) 0.3 (0.0-0.4); EOSINOPHILS % 3.8 % (0.0-6.0); HEMATOCRIT 24.9 % (34.2-44.1); HEMOGLOBIN 8.4 g/dL (12.0-16.0); LYMPHOCYTES # (AUTO) 0.5 (1.0-3.2); LYMPHOCYTES % 6.1 % (18.0-39.1); MEAN CORPUSCULAR HEMOGLOBIN 29.6 pg (28-32); MEAN CORPUSCULAR HGB CONC 33.7 g/dL (31-35); MEAN CORPUSCULAR VOLUME 87.7 fL (81-99); MONOCYTES # (AUTO) 0.7 (0.2-0.8); MONOCYTES % 7.9 % (4.4-11.3); NEUTROPHILS # (AUTO) 6.8 (2.1-6.9); NEUTROPHILS % 80.7 % (38.7-80.0); PLATELET COUNT 336 x10e3/uL (140-360); RED BLOOD COUNT 2.84 x10e6/uL (3.6-5.1); RED CELL DISTRIBUTION WIDTH 17.5 % (11.7-14.4)
[2017-08-17] MEDS ORDERED: SODIUM CHLORIDE 0.9% 1000ML 1,000 ML ONE (15:07)
[2017-08-17] MEDS ORDERED: CITRATE OF MAGNESIA 300ML BOTTLE PO ONE (16:00)
[2017-08-17] MEDS: ACETAMINOPHEN/CODEINE 300MG - 30MG TAB PO PRN (17:19)
--- NOTE | 2017-08-17 19:04 | Diagnostic Imaging Report ---
PROCEDURE:X-RAY LEFT SHOULDER, COMPLETE COMPARISON:Chest x-ray 08/13/17. INDICATIONS:left shoulder pain x 2 years/no trauma prior or present FINDINGS: 2 portable images obtained. There is a fracture of the left acromion with superior migration of the proximal fracture fragment. There is widening of the acromioclavicular joint. Anterior humeral dislocation is stable. The humeral head is grossly normal in morphology. The glenoid is poorly visualized due to portable technique. The clavicle is intact. The distal clavicle is diminutive suggestive of resorption. Visualized portions of the scapular body and ribs are intact. A vascular stent in the left axilla is stable. CONCLUSION: 1. Left humeral dislocation and left acromial fracture. Resorption of the distal clavicle. Findings are concerning for chronic injury or acute on chronic injury. 2. Poor visualization of the glenoid. Glenoid fracture cannot be excluded. Consider further evaluation with CT. No evidence of humeral fracture on provided images. Dictated by: Westley Chen M.D. on 08/17/2017 at 19:05 Electronically approved by: Westley Chen M.D. on 08/17/2017 at 19:05
--- NOTE | 2017-08-17 20:06 | Diagnostic Imaging Report ---
Tagged-RBC GI Bleed Study Clinical information: 61-year-old female with suspected GI bleed and anemia. Discussion: The patient's own red blood cells were labeled with 23 mCi of technetium-99m pertechnetate using the in vitro method (UltraTag). Dynamic images of the abdomen were obtained through 60 minutes. Distribution of tracer activity appears physiologic throughout the abdomen. No abnormal accumulation of tracer is seen within the gastrointestinal lumen. Impression: No scan evidence of active gastrointestinal bleeding at this time. Signed by: Dr. Kim De La Garza M.D. on 08/17/2017 8:03 PM
[2017-08-17] MEDS: MELATONIN 5 MG TABLET PO SCH (21:16)
[2017-08-17] MEDS: PRAVASTATIN 20 MG TAB PO SCH (21:16)
[2017-08-17] MEDS: CEFEPIME HCL 1 GM VIAL IV SCH (21:16)
[2017-08-17 21:35] LABS: BASOPHILS # (AUTO) 0.1 (0.0-0.1); BASOPHILS % 0.6 % (0.0-1.0); EOSINOPHILS # (AUTO) 0.3 (0.0-0.4); EOSINOPHILS % 3.1 % (0.0-6.0); HEMATOCRIT 26.5 % (34.2-44.1); HEMOGLOBIN 8.8 g/dL (12.0-16.0); LYMPHOCYTES # (AUTO) 0.6 (1.0-3.2); LYMPHOCYTES % 7.4 % (18.0-39.1); MEAN CORPUSCULAR HEMOGLOBIN 29.4 pg (28-32); MEAN CORPUSCULAR HGB CONC 33.2 g/dL (31-35); MEAN CORPUSCULAR VOLUME 88.6 fL (81-99); MONOCYTES # (AUTO) 0.9 (0.2-0.8); MONOCYTES % 10.5 % (4.4-11.3); NEUTROPHILS # (AUTO) 6.7 (2.1-6.9); NEUTROPHILS % 77.6 % (38.7-80.0); PLATELET COUNT 384 x10e3/uL (140-360); RED BLOOD COUNT 2.99 x10e6/uL (3.6-5.1); RED CELL DISTRIBUTION WIDTH 17.5 % (11.7-14.4)
[2017-08-18] MEDS: ACETAMINOPHEN/CODEINE 300MG - 30MG TAB PO PRN ×2 (00:12→08:18)
[2017-08-18 00:45] VITALS: BP 145/76
[2017-08-18 06:47] LABS: BASOPHILS # (AUTO) 0.1 (0.0-0.1); BASOPHILS % 0.6 % (0.0-1.0); EOSINOPHILS # (AUTO) 0.3 (0.0-0.4); EOSINOPHILS % 4.1 % (0.0-6.0); HEMATOCRIT 27.2 % (34.2-44.1); HEMOGLOBIN 8.9 g/dL (12.0-16.0); LYMPHOCYTES # (AUTO) 0.8 (1.0-3.2); LYMPHOCYTES % 9.5 % (18.0-39.1); MEAN CORPUSCULAR HEMOGLOBIN 29.2 pg (28-32); MEAN CORPUSCULAR HGB CONC 32.7 g/dL (31-35); MEAN CORPUSCULAR VOLUME 89.2 fL (81-99); MONOCYTES # (AUTO) 1.1 (0.2-0.8); MONOCYTES % 13.3 % (4.4-11.3); NEUTROPHILS # (AUTO) 5.9 (2.1-6.9); NEUTROPHILS % 71.4 % (38.7-80.0); PLATELET COUNT 368 x10e3/uL (140-360); RED BLOOD COUNT 3.05 x10e6/uL (3.6-5.1); RED CELL DISTRIBUTION WIDTH 17.6 % (11.7-14.4)
[2017-08-18 07:12] LABS: CALCIUM 8.7 mg/dL (8.4-10.2); CREATININE, SERUM 2.59 mg/dL (0.57-1.11); MAGNESIUM 1.8 MG/DL (1.3-2.1)
[2017-08-18 07:30] VITALS: BP 138/69
[2017-08-18] MEDS ORDERED: EPOETIN ALFA 10000 UNIT/ML VIAL SC ONE (08:00)
--- NOTE | 2017-08-18 08:14 | Progress Note ---
DATE: August 18, 2017 Feeling okay. Denies any swelling. Denies any trouble breathing. Hemoglobin appears to be stable around 8.9. One dose of Epogen requested. PHYSICAL EXAMINATION GENERAL: Sitting up in no distress. VITALS: Temperature 97.5, pulse 85, blood pressure 145/76. CHEST: Clear. EXTREMITIES: No edema. Access is patent in the left upper extremity. ASSESSMENT 1. End-stage renal disease. 2. Anemia secondary to gastrointestinal bleed and chronic kidney disease, superimposed. 3. History of hypertension. 4. Secondary hyperparathyroidism. PLAN: Over here, she has been getting dialysis on a Monday and basis. This is reasonable. Will leave it as it is. Job#: [id number] [place]
[2017-08-18] MEDS: SUCRALFATE 1 GM TAB PO SCH ×5 (08:17→20:36)
[2017-08-18] MEDS: LOSARTAN POTASSIUM 100 MG TAB PO SCH (08:18)
[2017-08-18] MEDS: CLONIDINE HCL 0.1 MG TAB PO SCH ×3 (08:18→20:35)
[2017-08-18] MEDS: AMLODIPINE BESYLATE 10 MG TAB PO SCH (08:18)
[2017-08-18] MEDS: DULOXETINE HCL 30 MG DELAYED RELEASE PO SCH (08:18)
[2017-08-18] MEDS: CITALOPRAM HYDROBROMIDE 20 MG TAB PO SCH (08:18)
[2017-08-18] MEDS: PANTOPRAZOLE SOD 40 MG TABEC PO SCH (08:18)
[2017-08-18] MEDS: GABAPENTIN 100 MG CAP PO SCH ×3 (08:18→20:36)
[2017-08-18 10:42] LABS: ABG HCO3 24 mmol/L (23-28); ABG PCO2 31 mmHg (41-51); ABG PO2 349 mmHg (80-105)
--- NOTE | 2017-08-18 10:47 | Consultation ---
DATE OF CONSULTATION: August 14, 2017 CONSULTATION TO: Bo Hernandez MD Sofiya Barber is a 61-year-old female who was referred to me for GI bleed with a hemoglobin of 3.9 grams. The patient has been on Eliquis. SOCIAL HISTORY: Noncontributory. FAMILY HISTORY: Noncontributory. ALLERGIES: REPORTED LORAZEPAM. MEDICATIONS: At this time consist Protonix and Tylenol. REVIEW OF SYSTEMS HEENT: Normal. CARDIAC: History of being on Eliquis. GI: At the present time, GI bleed. : Chronic renal failure. MUSCULOSKELETAL: Normal. SKIN AND BREASTS: Normal. NEUROENDOCRINE: Normal. PHYSICAL EXAMINATION GENERAL: Moderately built female, hypotensive at the time of my examination with a blood pressure of 86/40. Very anemic. HEART: Tachycardic. LUNGS: Clear. ABDOMEN: Obese. RECTAL AND VAGINAL: Examination deferred. CENTRAL NERVOUS SYSTEM: Essentially normal. LABS: Hemoglobin of 3.9, hematocrit 12.5, white count 26,000, platelets 397,000. Sodium 136, potassium 5.3, chloride 95, CO2 19, BUN 70, creatinine 5.8. INR 2.0. Bilirubin 0.7, SGOT 13, SGPT 30, alkaline phosphatase 130, albumin low at 2.0, protein low at 6.0. IMPRESSION 1. Gastrointestinal bleed. 2. Anemia of blood loss. 3. Leukemoid reaction. 4. Chronic renal failure. 5. Hyperkalemia. 6. Coagulopathy. 7. Hypoproteinemia. 8. Hypoalbuminemia. 9. History of hypertension, now hypotension. 10. Bleed due to Eliquis. PLAN, COMMENTS AND SUGGESTIONS: Suggest Amicar at a dose of 24 grams to have a formed clot as APCC is not available at this institution. Blood transfusion. Infectious disease consultation. I will confine myself to hematology. At the time of this dictation, the patient has recovered. Hemoglobin today is 8.9 with a white count of 8200. Thank you very much for allowing me to participate in the management of this patient. Job#: [id number] cc:MD SAFIA BRAGA MD SATHISH CAYENNE, MD
[2017-08-18 14:15] VITALS: BP 137/76
--- NOTE | 2017-08-18 14:52 | Diagnostic Imaging Report ---
PROCEDURE:X-RAY LEFT SHOULDER, LIMITED COMPARISON:08/17/2017. INDICATIONS:DISLOCATION OF LEFT SHOULDER FINDINGS: One view of the shoulder (scapular "Y-view"). Anteroinferior dislocation of the left humerus. The humeral head morphology is grossly unchanged. Redemonstrated is left acromial fracture with superior displacement of the fracture fragment. Unchanged chronic appearing deformity of the distal clavicle, suggestive of remote trauma or inflammation. Left axillary vascular stent, unchanged CONCLUSION: Anterior left glenohumeral dislocation, unchanged. Dictated by: Gabe Rangel M.D. on 08/18/2017 at 14:53 Electronically approved by: Gabe Rangel M.D. on 08/18/2017 at 14:53
[2017-08-18 16:11] VITALS: BP 160/69
[2017-08-18 18:33] LABS: BASOPHILS # (AUTO) 0.1 (0.0-0.1); BASOPHILS % 0.6 % (0.0-1.0); EOSINOPHILS # (AUTO) 0.4 (0.0-0.4); EOSINOPHILS % 4.8 % (0.0-6.0); HEMATOCRIT 26.6 % (34.2-44.1); HEMOGLOBIN 8.8 g/dL (12.0-16.0); LYMPHOCYTES # (AUTO) 0.7 (1.0-3.2); LYMPHOCYTES % 9.4 % (18.0-39.1); MEAN CORPUSCULAR HEMOGLOBIN 29.7 pg (28-32); MEAN CORPUSCULAR HGB CONC 33.1 g/dL (31-35); MEAN CORPUSCULAR VOLUME 89.9 fL (81-99); MONOCYTES # (AUTO) 1.1 (0.2-0.8); MONOCYTES % 14.2 % (4.4-11.3); NEUTROPHILS # (AUTO) 5.5 (2.1-6.9); NEUTROPHILS % 69.9 % (38.7-80.0); PLATELET COUNT 337 x10e3/uL (140-360); RED BLOOD COUNT 2.96 x10e6/uL (3.6-5.1); RED CELL DISTRIBUTION WIDTH 17.4 % (11.7-14.4)
--- NOTE | 2017-08-18 18:39 | Diagnostic Imaging Report ---
CT scan of the LEFT SHOULDER, WITHOUT intravenous contrast. TECHNIQUE: Standard departmental protocols were used. Sagittal and coronal reformatted images were obtained. HISTORY: Pain, fall, dislocation, June 2017 COMPARISON: Left shoulder radiograph August 18, 2017 FINDINGS: Bones: Mild impaction at the posterior lateral aspect of the humeral head with adjacent small ossific fragments. Marked remodeling of the undersurface of the acromium. Joints: Anterior dislocation of the humeral head, subcoracoid position. A very large low to intermediate density glenohumeral joint effusion. Soft Tissues: Diffuse muscle atrophy, most notably severe of the supraspinatus, infraspinatus, and teres minor. Trace left pleural effusion. A partially visualized 5 mm peripheral pulmonary nodule (series 4 image 73). Anterior metallic vascular stent. IMPRESSION: 1. Anterior glenohumeral dislocation with associated Hill-Sachs deformity and large joint effusion. 2. Incidentally, a partially visualized peripheral 5 mm left pulmonary nodule. Recommend correlation with a CT of the chest without contrast for complete characterization. 3. Possible chronic full-thickness rotator cuff tear. Signed by: Dr. Devon Carrillo D.O., M.M.M. on 08/18/2017 6:35 PM
[2017-08-18 20:00] VITALS: BP 128/61
[2017-08-18] MEDS ORDERED: CEFEPIME HCL 1 GM VIAL IV SCH (20:00)
[2017-08-18] MEDS: MELATONIN 5 MG TABLET PO SCH (20:35)
[2017-08-18] MEDS: PRAVASTATIN 20 MG TAB PO SCH (20:36)
[2017-08-19] VITALS (7 sets, daily range): BP systolic 123–152; BP diastolic 53–87
[2017-08-19 00:50] LABS: BASOPHILS # (AUTO) 0.1 (0.0-0.1); BASOPHILS % 0.8 % (0.0-1.0); EOSINOPHILS # (AUTO) 0.4 (0.0-0.4); EOSINOPHILS % 4.6 % (0.0-6.0); HEMATOCRIT 26.2 % (34.2-44.1); HEMOGLOBIN 8.6 g/dL (12.0-16.0); LYMPHOCYTES # (AUTO) 0.8 (1.0-3.2); LYMPHOCYTES % 10.2 % (18.0-39.1); MEAN CORPUSCULAR HEMOGLOBIN 29.5 pg (28-32); MEAN CORPUSCULAR HGB CONC 32.8 g/dL (31-35); MEAN CORPUSCULAR VOLUME 89.7 fL (81-99); MONOCYTES # (AUTO) 1.2 (0.2-0.8); MONOCYTES % 15.4 % (4.4-11.3); NEUTROPHILS # (AUTO) 5.1 (2.1-6.9); NEUTROPHILS % 67.1 % (38.7-80.0); PLATELET COUNT 348 x10e3/uL (140-360); RED BLOOD COUNT 2.92 x10e6/uL (3.6-5.1); RED CELL DISTRIBUTION WIDTH 17.3 % (11.7-14.4)
[2017-08-19 06:09] LABS: BASOPHILS # (AUTO) 0.1 (0.0-0.1); BASOPHILS % 0.7 % (0.0-1.0); EOSINOPHILS # (AUTO) 0.4 (0.0-0.4); EOSINOPHILS % 5.3 % (0.0-6.0); HEMATOCRIT 27.7 % (34.2-44.1); HEMOGLOBIN 8.9 g/dL (12.0-16.0); LYMPHOCYTES # (AUTO) 0.8 (1.0-3.2); LYMPHOCYTES % 11.5 % (18.0-39.1); MEAN CORPUSCULAR HEMOGLOBIN 29.6 pg (28-32); MEAN CORPUSCULAR HGB CONC 32.1 g/dL (31-35); MONOCYTES % 13.8 % (4.4-11.3); NEUTROPHILS # (AUTO) 4.8 (2.1-6.9); NEUTROPHILS % 66.3 % (38.7-80.0); PLATELET COUNT 363 x10e3/uL (140-360); RED BLOOD COUNT 3.01 x10e6/uL (3.6-5.1); RED CELL DISTRIBUTION WIDTH 17.2 % (11.7-14.4)
[2017-08-19 08:30] LABS: ANION GAP 13.9 mmol/L (8-16); BLOOD UREA NITROGEN 9 mg/dL (7-26); BUN/CREATININE RATIO 11 (6-25); CALCIUM 9.3 mg/dL (8.4-10.2); CARBON DIOXIDE 25 mmol/L (22-29); CHLORIDE 105 mmol/L (98-107); CREATININE, SERUM 0.81 mg/dL (0.57-1.11); EST GLOMERULAR FILTRATION RATE > 60 ML/MIN (60-); GLUCOSE 117 mg/dL (74-118); MAGNESIUM 1.8 MG/DL (1.3-2.1); POTASSIUM 3.9 mmol/L (3.5-5.1); SODIUM 140 mmol/L (136-145)
[2017-08-19] MEDS: COLLAGENASE OINTMENT 30 GM TUBE TP SCH (09:00)
[2017-08-19] MEDS: DULOXETINE HCL 30 MG DELAYED RELEASE PO SCH (09:00)
[2017-08-19] MEDS: AMLODIPINE BESYLATE 10 MG TAB PO SCH (09:00)
[2017-08-19] MEDS: GABAPENTIN 100 MG CAP PO SCH ×2 (09:00→21:43)
[2017-08-19] MEDS: CLONIDINE HCL 0.1 MG TAB PO SCH ×2 (09:00→21:00)
[2017-08-19] MEDS: PANTOPRAZOLE SOD 40 MG TABEC PO SCH (09:00)
[2017-08-19] MEDS: LOSARTAN POTASSIUM 100 MG TAB PO SCH (09:00)
[2017-08-19] MEDS: CITALOPRAM HYDROBROMIDE 20 MG TAB PO SCH (09:00)
[2017-08-19] MEDS ORDERED: SODIUM CHLORIDE 0.9% 1000ML 2,000 ML ONE (09:09)
--- NOTE | 2017-08-19 09:36 | Progress Note ---
DATE: August 18, 2017 NEUROLOGICAL PROGRESS NOTE AGE: 61. Patient is resting comfortable, awake, oriented x3. Speech is clear, no dysarthria, no dysphagia. She is still complaining of pain to the left shoulder with difficulty moving the left arm. X-rays of the left shoulder was ordered and there is a left humeral dislocation and left acromial fracture. There is resorption of the distal clavicle. Findings are consistent or [id number] . A CAT scan of the shoulder has been requested. Dr. Garcia has requested orthopedic consult to be seen by who has ordered a CAT scan of the left shoulder which we do not have present now. IMPRESSION 1. Metabolic encephalopathy, improved. 2. Gastrointestinal bleed. 3. Chronic atrial fibrillation. 4. End-stage renal disease. 5. Coronary artery disease. 6. Left humeral dislocation and left acromial fracture. Will be discussion with attending physician. Job#: [id number] ERASTO
[2017-08-19] MEDS ORDERED: EPOETIN ALFA 10000 UNIT/ML VIAL SC SCH ×2 (10:00→20:00)
[2017-08-19] MEDS: SUCRALFATE 1 GM TAB PO SCH ×3 (11:30→21:00)
[2017-08-19 13:59] LABS: LYMPHOCYTES % (MANUAL) 11 % (19-48)
[2017-08-19 14:00] LABS: EOSINOPHILS % (MANUAL) 5 % (0-7); MONOCYTES % (MANUAL) 11 % (3.4-9.0)
[2017-08-19 14:01] LABS: NEUTROPHILS % (MANUAL) 73 % (40-74)
[2017-08-19 14:03] LABS: PLATELET ESTIMATE SLIGHTLY INCREASED; RBC MORPHOLOGY COMMENT NORMAL
[2017-08-19] MEDS: ACETAMINOPHEN/CODEINE 300MG - 30MG TAB PO PRN (15:56)
[2017-08-19] MEDS: MELATONIN 5 MG TABLET PO SCH (21:43)
[2017-08-19] MEDS: PRAVASTATIN 20 MG TAB PO SCH (21:43)
[2017-08-19] MEDS: TRAMADOL HCL 50 MG TAB PO PRN (23:40)
[2017-08-20] VITALS (7 sets, daily range): BP systolic 117–162; BP diastolic 58–80
[2017-08-20 07:46] LABS: BASOPHILS # (AUTO) 0.1 (0.0-0.1); BASOPHILS % 0.9 % (0.0-1.0); EOSINOPHILS # (AUTO) 0.4 (0.0-0.4); EOSINOPHILS % 4.5 % (0.0-6.0); HEMATOCRIT 27.9 % (34.2-44.1); LYMPHOCYTES % 12.1 % (18.0-39.1); MEAN CORPUSCULAR HEMOGLOBIN 29.4 pg (28-32); MEAN CORPUSCULAR HGB CONC 32.3 g/dL (31-35); MEAN CORPUSCULAR VOLUME 91.2 fL (81-99); MONOCYTES # (AUTO) 1.2 (0.2-0.8); MONOCYTES % 13.8 % (4.4-11.3); NEUTROPHILS # (AUTO) 5.6 (2.1-6.9); NEUTROPHILS % 65.5 % (38.7-80.0); PLATELET COUNT 364 x10e3/uL (140-360); RED BLOOD COUNT 3.06 x10e6/uL (3.6-5.1); RED CELL DISTRIBUTION WIDTH 17.2 % (11.7-14.4)
[2017-08-20 08:26] LABS: ANION GAP 11.8 mmol/L (8-16); CALCIUM 8.8 mg/dL (8.4-10.2); CREATININE, SERUM 2.81 mg/dL (0.57-1.11); POTASSIUM 3.8 mmol/L (3.5-5.1)
[2017-08-20] MEDS: CLONIDINE HCL 0.1 MG TAB PO SCH ×2 (08:42→21:00)
[2017-08-20] MEDS: CITALOPRAM HYDROBROMIDE 20 MG TAB PO SCH (08:42)
[2017-08-20] MEDS: SUCRALFATE 1 GM TAB PO SCH ×4 (08:42→21:27)
[2017-08-20] MEDS: LOSARTAN POTASSIUM 100 MG TAB PO SCH (08:43)
[2017-08-20] MEDS: TRAMADOL HCL 50 MG TAB PO PRN (08:43)
[2017-08-20] MEDS: COLLAGENASE OINTMENT 30 GM TUBE TP SCH (08:43)
[2017-08-20] MEDS: AMLODIPINE BESYLATE 10 MG TAB PO SCH (08:43)
[2017-08-20] MEDS: PANTOPRAZOLE SOD 40 MG TABEC PO SCH (08:43)
[2017-08-20] MEDS: DULOXETINE HCL 30 MG DELAYED RELEASE PO SCH (08:43)
[2017-08-20] MEDS: GABAPENTIN 100 MG CAP PO SCH ×2 (08:43→21:28)
[2017-08-20 09:19] LABS: ALBUMIN 2.1 g/dL (3.5-5.0); BILIRUBIN,DIRECT 0.3 mg/dL (0.0-0.5)
[2017-08-20 11:59] LABS: EOSINOPHILS % (MANUAL) 6 % (0-7); LYMPHOCYTES % (MANUAL) 17 % (19-48); MONOCYTES % (MANUAL) 15 % (3.4-9.0); NEUTROPHILS % (MANUAL) 62 % (40-74); PLATELET ESTIMATE ADEQUATE; PLATELET MORPHOLOGY COMMENT NORMAL; RBC MORPHOLOGY COMMENT NORMAL
[2017-08-20] MEDS: PRAVASTATIN 20 MG TAB PO SCH (21:28)
[2017-08-20] MEDS: MELATONIN 5 MG TABLET PO SCH (21:28)
[2017-08-21] VITALS (7 sets, daily range): BP systolic 100–161; BP diastolic 48–72
[2017-08-21 07:27] LABS: BASOPHILS # (AUTO) 0.1 (0.0-0.1); BASOPHILS % 0.7 % (0.0-1.0); EOSINOPHILS # (AUTO) 0.5 (0.0-0.4); EOSINOPHILS % 4.5 % (0.0-6.0); HEMATOCRIT 26.5 % (34.2-44.1); HEMOGLOBIN 8.6 g/dL (12.0-16.0); LYMPHOCYTES # (AUTO) 1.1 (1.0-3.2); LYMPHOCYTES % 10.5 % (18.0-39.1); MEAN CORPUSCULAR HEMOGLOBIN 29.9 pg (28-32); MEAN CORPUSCULAR HGB CONC 32.5 g/dL (31-35); MONOCYTES # (AUTO) 1.1 (0.2-0.8); MONOCYTES % 10.7 % (4.4-11.3); NEUTROPHILS % 70.8 % (38.7-80.0); PLATELET COUNT 367 x10e3/uL (140-360); RED BLOOD COUNT 2.88 x10e6/uL (3.6-5.1); RED CELL DISTRIBUTION WIDTH 16.8 % (11.7-14.4)
[2017-08-21 07:55] LABS: ANION GAP 11.8 mmol/L (8-16); CALCIUM 8.8 mg/dL (8.4-10.2); CREATININE, SERUM 4.14 mg/dL (0.57-1.11); MAGNESIUM 1.9 MG/DL (1.3-2.1); POTASSIUM 3.8 mmol/L (3.5-5.1)
[2017-08-21] MEDS ORDERED: ALTEPLASE RECOMBINANT 2 MG/2 ML VIAL IV PRN (08:00)
[2017-08-21] MEDS: CITALOPRAM HYDROBROMIDE 20 MG TAB PO SCH (08:25)
[2017-08-21] MEDS: SUCRALFATE 1 GM TAB PO SCH ×4 (08:25→20:33)
[2017-08-21] MEDS: CLONIDINE HCL 0.1 MG TAB PO SCH ×2 (08:25→20:41)
[2017-08-21] MEDS: GABAPENTIN 100 MG CAP PO SCH ×2 (08:26→20:36)
[2017-08-21] MEDS: LOSARTAN POTASSIUM 100 MG TAB PO SCH (08:26)
[2017-08-21] MEDS: AMLODIPINE BESYLATE 10 MG TAB PO SCH (08:26)
[2017-08-21] MEDS: DULOXETINE HCL 30 MG DELAYED RELEASE PO SCH (08:26)
[2017-08-21] MEDS: PANTOPRAZOLE SOD 40 MG TABEC PO SCH (08:26)
[2017-08-21] MEDS: COLLAGENASE OINTMENT 30 GM TUBE TP SCH (09:49)
[2017-08-21 10:54] LABS: EOSINOPHILS % (MANUAL) 2 % (0-7); LYMPHOCYTES % (MANUAL) 7 % (19-48); MONOCYTES % (MANUAL) 6 % (3.4-9.0); NEUTROPHILS % (MANUAL) 83 % (40-74)
[2017-08-21 10:55] LABS: ANISOCYTOSIS SLIGHT; POIKILOCYTOSIS SLIGHT
[2017-08-21 10:56] LABS: HYPOCHROMASIA SLIGHT; PLATELET ESTIMATE ADEQUATE; RBC MORPHOLOGY COMMENT NORMAL
[2017-08-21 10:57] LABS: PLATELET MORPHOLOGY COMMENT NORMAL
[2017-08-21] MEDS ORDERED: CARAFATE1 GM PO (12:48)
[2017-08-21] MEDS ORDERED: TYLENOL # 31 EA PO (12:48)
[2017-08-21] MEDS: MELATONIN 5 MG TABLET PO SCH (20:36)
[2017-08-21] MEDS ORDERED: SIMVASTATIN 20 MG TAB PO SCH (21:00)
--- NOTE | 2017-08-22 00:09 | Discharge Summary ---
ADMISSION DIAGNOSES: 1. Gastrointestinal bleed with fecal occult blood test positive. 2. Hypotension. 3. Atrial fibrillation with cerebrovascular accident history. 4. Muscle spasms. 5. Gastroesophageal reflux disease. 6. End-stage renal with hyperkalemia. 7. Elevated troponin. 8. Elevated lactic acid. 9. Altered mental status. DISCHARGE DIAGNOSES: 1. Gastrointestinal bleed with fecal occult blood test positive. 2. Hypotension. 3. Atrial fibrillation with cerebrovascular accident history. 4. Muscle spasms. 5. Gastroesophageal reflux disease. 6. End-stage renal with hyperkalemia. 7. Elevated troponin. 8. Elevated lactic acid. 9. Altered mental status. 10. Hiatal hernia. 11. Gastritis. 12. Ruled out Clostridium difficile. HISTORY: Patient has a history of hypertension, obesity, AFib, degenerative joint disease, end-stage renal disease with dialysis on Rpsvsp-Iljdyarvn-Bgazth, CHF, CAD, CVA with left-sided weakness, GERD, hyperlipidemia with a surgical history of , cholecystectomy, left upper extremity fistula, and left knee surgery. HOSPITAL COURSE: A 61-year-old female presents after having 8 to 9 black stools within a couple of hours and feeling very weak per family. Patient was recently discharged from [facility] and had black stools since a couple of days after lumbar surgery with Dr. Candelario. Family also reports the patient had muscle spasms since being at [facility] with the surgery. On admission, the patient was given 4 units PRBC, 1 unit FFP, and 1 unit platelets as well as started on Amicar and Protonix drip. Her hemoglobin was found to be 3.9 on admission. GI was consulted as well as hematology and nephrology. Patient was on Plavix and Eliquis, which was put on hold. Patient was also started on a Levophed drip for hypotension, cardiology consulted. Neurology was consulted for the spasms, and a CAT scan of the brain that showed cortical left [employer] vascular insult, mild supratentorial white matter small-vessel ischemic changes, mild generalized volume loss. Patient was immediately put on dialysis after the 4 units as she was already hyperkalemic prior to the blood transfusions. ID was also consulted due to elevated lactic acid and for concerns about sepsis. Patient was having diarrhea and she was tested for C. diff, which was negative. Per GI, she had a EGD, which showed a normal esophagus, small sliding hiatal hernia, mild gastritis, and cluster of nodules proximal to second portion, which were biopsied. On admission, the patient had a chest x-ray, which showed mild enlarged cardiomediastinal silhouette, aortic calcifications, central vascular congestion, no consolidation, no effusion or pneumothorax, interval erosion change and remodeling of the left humeral head. Patient continued to complain of left arm pain, so she had x-ray of the left shoulder, which showed a left humeral dislocation and left acromial fracture. Ortho was then consulted who said that this was an old injury and that surgery was not indicated for this patient. He ordered a CT of the shoulder that showed anterior glenohumeral dislocation with associated Hill-Sachs deformity and large joint effusion, possible chronic full-thickness rotator cuff tear. As the EGD did not explain the reason for the massive GI bleed, the patient then had a GI bleed scan, which was negative. Per GI, the patient can followup outpatient for a colonoscopy as her hemoglobin remained stable after getting all of the transfusions. During the hospital stay, she got a total of 4 PRBCs, 1 FFP, and 1 unit platelets. Her vital signs remained stable. She remained afebrile. She works with therapy and with transfers. She will be discharged home with home health and family support. She is doing much better and excited to go home. She says she feels great. Patient was found to have of the blood and was started on IV antibiotics per ID. Repeat cultures were negative, so she was taken off antibiotics. She is safe to discharge home with no antibiotics and she will get 1 more dialysis today in the hospital and return to normal dialysis days once outpatient. She will follow up with primary care in 1 to 2 weeks. Dictated by Beronica Khan NP SANDRITA SWEET MD Job#: [id number]
== END 2017-08-21 20:48 | disposition home or self-care (01) | DRG 871 ==
LOC: ER 22:05 → ERHOLD 08-14 01:27 → ICU 08-14 02:32 → IMCU 08-16 23:07 → MED/SURG 08-18 15:17
PROVIDERS: ADMIT Internal Medicine; ATTEND Internal Medicine
PROC: 30250N1 (ICD-10-PCS; 2017-08-13)
PROC: 30250L1 (ICD-10-PCS; principal; 2017-08-14)
PROC: 30250R1 (ICD-10-PCS; 2017-08-14)
PROC: 30250K1 (ICD-10-PCS; 2017-08-14)
PROC: 5A1D70Z Performance of Urinary Filtration, Intermittent, Less than 6 Hours Per Day (ICD-10-PCS; 2017-08-14)
PROC: 02HV33Z Insertion of Infusion Device into Superior Vena Cava, Percutaneous Approach (ICD-10-PCS; 2017-08-14)
PROC: 0DB98ZX Excision of Duodenum, Via Natural or Artificial Opening Endoscopic, Diagnostic (ICD-10-PCS; 2017-08-15)
DX: A41.9 Sepsis, unspecified organism (principal); N18.6 End stage renal disease; G93.41 Metabolic encephalopathy; I13.2 Hypertensive heart and chronic kidney disease with heart failure and with stage 5 chronic kidney disease, or end stage renal disease; D68.9 Coagulation defect, unspecified; I69.354 Hemiplegia and hemiparesis following cerebral infarction affecting left non-dominant side; D62 Acute posthemorrhagic anemia; K92.1 Melena; N25.81 Secondary hyperparathyroidism of renal origin; Z79.01 Long term (current) use of anticoagulants; E87.5 Hyperkalemia; I50.9 Heart failure, unspecified; Z99.2 Dependence on renal dialysis; K21.9 Gastro-esophageal reflux disease without esophagitis; E78.5 Hyperlipidemia, unspecified; I48.0 Paroxysmal atrial fibrillation; I25.10 Atherosclerotic heart disease of native coronary artery without angina pectoris; E66.9 Obesity, unspecified; D63.1 Anemia in chronic kidney disease; I69.398 Other sequelae of cerebral infarction; H53.461 Homonymous bilateral field defects, right side; M25.512 Pain in left shoulder; D72.823 Leukemoid reaction; E77.8 Other disorders of glycoprotein metabolism; E88.09 Other disorders of plasma-protein metabolism, not elsewhere classified; K44.9 Diaphragmatic hernia without obstruction or gangrene; K29.70 Gastritis, unspecified, without bleeding; Z68.33 Body mass index [BMI] 33.0-33.9, adult; E80.6 Other disorders of bilirubin metabolism; K31.89 Other diseases of stomach and duodenum; S42.122A Displaced fracture of acromial process, left shoulder, initial encounter for closed fracture; S43.012A Anterior subluxation of left humerus, initial encounter; T45.515A Adverse effect of anticoagulants, initial encounter; R53.81 Other malaise; L89.152 Pressure ulcer of sacral region, stage 2
CPT/HCPCS: 36415; 36600; 43239; 70450; 71045; 73020; 78278; 80048; 80053; 80076; 82270; 82550; 82553; 82805; 82948; 83605; 83735; 83880; 84100; 84484; 85014; 85018; 85025; 85610; 85730; 86850; 86900; 86920; 87040; 87071; 87205; 87350; 87493; 88305; 90962; 93005; 93306; 97139; 99285; A9512; J0692; J1200; J2150; J3370; J3430; J7030; J7040; J7050; P9016; P9017; P9034; Q4081

== ENCOUNTER 2017-09-22 16:11 | Inpatient (IN) | payer MEDICARE, BC ==
[~2017-09-22] VITALS: Ht 149.9 cm; Wt 71.0 kg
[~2017-09-22 16:11] MED LIST changes: +AMLODIPINE BESY10 MG PO; +CARAFATE1 GM PO; +CITALOPRAM HBR20 MG PO; +CLONIDINE HCL0.1 MG PO; +CYMBALTA60 MG PO; +ELIQUIS PO; +GABAPENTIN100 MG PO; +LOSARTAN POTAS100 MG PO; +OMEPRAZOLE40 MG PO; +PLAVIX75 MG PO; +PRAVASTATIN SOD40 MG PO; +SENSIPAR30 MG PO; +TYLENOL # 31 EA PO; +ZETIA10 MG PO; +[UNRECOGNIZED DRUG - OTHER] PO
--- OUTSIDE RECORDS SUMMARY | 2017-09-22 16:15 | XMS REPORT | Continuity of Care Document ---
Author Author [facility] Organization [facility] Address [address] [place] [address] Phone Unavailable Care Team Providers Care Director Of Psychiatry Name Role Phone DAYSI FUNEZ PCP Insurance Providers Guarantor Julee Barber Address [address] [place] [address] Email [email or web address] Payer [facility] Policy Number [id number] Subscriber's Name Sunil,Julee Relationship 18 Self / Same As Patient Group Number [id number] Group Name [facility] Effective Date 16 Payer Medicare A & B Policy Number [id number] Subscriber's Name Jani Barberitila Relationship 18 Self / Same As Patient Effective Date 99 Advance Directives Directive Response Recorded Date/Time Does the patient have an advance directive? No 08/14/17 5:25am If yes, is advance directive on file with [facility]? No 08/14/17 5:25am If not on file with [facility] will patient provide a copy? Yes 08/14/17 5:25am Do you have a Directive to Physician? No 08/13/17 10:24pm Do you have a Medical Power of Tax Collector? No 08/13/17 10:24pm Do you have an out of hospital Do Not Resuscitate Order? No 08/13/17 10:24pm Do you have any special needs we should be aware of? No 08/13/17 10:24pm Do you have a support person here with you today? Yes 08/13/17 10:24pm Did patient receive Notice of Privacy Practices? Yes 08/13/17 10:24pm Did patient receive patient rights and responsibilities? Yes 08/13/17 10:24pm Problems Medical Problem Onset Date Status Acute coronary syndrome Unknown Altered mental status Unknown ESRD (end stage renal disease) on dialysis Unknown Upper GI bleed Unknown Medications Current Home Medications Medication Dose Units Route Directions Days Qty Instructions Start Date Acetaminophen/Codeine Phosphate (Tylenol # 3*) 1 Ea Tab 1 Ea Oral Every 4 Hours as needed for Pain 30 Tab 08/21/17 Amlodipine Besylate 10 Mg Tablet 10 Mg Oral Daily 30 Tab Cinacalcet Hcl (Sensipar) 30 Mg Tablet 60 Mg Oral Daily 30 Tab Citalopram Hydrobromide (Citalopram Hbr) 20 Mg Tablet 20 Mg Oral Daily Clonidine Hcl 0.1 Mg Tablet 1 Tab Oral Twice A Day 60 Tab Duloxetine Hcl (Cymbalta) 60 Mg Capsule.dr 1 Tab Oral Daily Ezetimibe (Zetia) 10 Mg Tablet 10 Mg Oral Daily 30 Tab Gabapentin 100 Mg Capsule 100 Mg Oral Twice A Day Losartan Potassium 100 Mg Tablet 100 Mg Oral Daily Omeprazole 40 Mg Capsule.dr 40 Mg Oral Daily Pravastatin Sodium 40 Mg Tablet 1 Tab Oral Daily Sucralfate (Carafate) 1 Gm Tablet 1 Gm Oral Before Meals And At Bedtime 30 Days 08/21/17 Past Home Medications Medication Directions Ordered Status Alprazolam (Xanax) 0.25 Mg Tablet, 1 Tab Oral Pre Hd Discontinued Amlodipine , 2.5 Mg Oral Daily Discontinued Amlodipine Besylate (Norvasc) 5 Mg Tab, 5 Mg Oral Daily Discontinued Atenolol , 100 Mg Daily Discontinued Clopidogrel Bisulfate (Plavix) 75 Mg Tablet, 75 Mg Oral Daily Discontinued Eliquis , 2.5 Mg Oral Twice A Day Discontinued Elitquis , 2.5 Mg Oral Twice A Day Discontinued Isosorbide Mononitrate (Imdur) 30 Mg Tabcr, 1 Tab Oral Daily Discontinued Omeprazole , 40 Mg Daily Discontinued Sensipar , 30 Mg Daily Discontinued Tramadol , 50 Mg Daily Discontinued Tramadol/Acetaminophen (Tramadol-Acetaminophn 37.5-325) 1 Ea Tab, 37.5 - 325 Mg Oral Twice A Day Discontinued Social History Social History Problem Response Recorded Date/Time Onset Date Status Hx Psychiatric Problems No 08/14/2017 5:25am Not Applicable Not Applicable Hx Eating Disorder No 08/14/2017 5:25am Not Applicable Not Applicable Hx Substance Use Disorder No 08/14/2017 5:25am Not Applicable Not Applicable Hx Depression No 08/14/2017 5:25am Not Applicable Not Applicable Hx Alcohol Use No 08/14/2017 5:25am Not Applicable Not Applicable Hx Substance Use Treatment No 08/14/2017 5:25am Not Applicable Not Applicable Hx Physical Abuse No 08/14/2017 5:25am Not Applicable Not Applicable Hospital Discharge Instructions No hospital discharge instruction information available. Plan of Care Discharge Date 08/21/17 8:48pm Disposition HOME, SELF-CARE Instructions/Education Provided GI Bleeding Hemodialysis Hypertension Prescriptions See Medication Section Additional Instructions/Education F/U WITH PCP IN 1-2 WEEKS RESUME NORMAL DIALYSIS SCHEDULE AVOID FATTY FOODS, CITRUS, ALCOHOL/SMOKING, NSAIDS, SPICY FOODS-Renal Diet [facility] arranged [phone] Functional Status Query Response Date Recorded FUNCTIONAL STATUS . August 18, 2017 4:56pm Ambulation Ability Total Assistance August 14, 2017 3:00am Toileting Ability Minimum Assistance August 20, 2017 6:44pm Allergies, Adverse Reactions, Alerts Allergen Type Severity Reaction Status Last Updated Lorazepam Allergy Severe Active 08/13/17 Immunizations No immunization information available. Vital Signs Acute Vital Signs Vital Response Date/Time Temperature (Fahrenheit) 97.0 degrees F (97.6 - 99.5) 08/21/2017 8:42pm Pulse Pulse Rate (adult) 79 bpm (60 - 90) 08/21/2017 8:42pm Respiratory Rate 19 bpm (12 - 24) 08/21/2017 8:42pm Blood Pressure 151/62 mm Hg 08/21/2017 8:42pm Height 4 ft 11 in 08/14/2017 3:20am Weight 163.38 lb 08/21/2017 8:00am Body Mass Index 33.0 kg/m^2 08/21/2017 8:15am Results Laboratory Results Test Name Result Units Flags Reference Collection Date/Time Result Date/ Time Comments White Blood Count 9.96 x10e3/uL 4.8-10.8 08/21/2017 7:0008/21/2017 7 :34am Red Blood Count 2.88 x10e6/uL L 3.6-5.1 08/21/2017 7:0008/21/2017 7: 34am Hemoglobin 8.6 g/dL L 12.0-16.0 08/21/2017 7:0008/21/2017 7:34am Hematocrit 26.5 % L 34.2-44.1 08/21/2017 7:0008/21/2017 7:34am Mean Corpuscular Volume 92.0 fL 81-99 08/21/2017 7:0008/21/2017 7: 34am Mean Corpuscular Hemoglobin 29.9 pg 28-32 08/21/2017 7:0008/21/2017 7:34am Mean Corpuscular Hemoglobin Concent 32.5 g/dL 31-35 08/21/2017 7:08/21/2017 7:34am Red Cell Distribution Width 16.8 % H 11.7-14.4 08/21/2017 7:002017 7:34am Platelet Count 367 x10e3/uL H 140-360 08/21/2017 7:08/21/2017 7: 34am Neutrophils (%) (Auto) 70.8 % 38.7-80.0 08/21/2017 7:08/21/2017 7: 34am Lymphocytes (%) (Auto) 10.5 % L 18.0-39.1 08/21/2017 7:0008/21/2017 7 :34am Monocytes (%) (Auto) 10.7 % 4.4-11.3 08/21/2017 7:08/21/2017 7: 34am Eosinophils (%) (Auto) 4.5 % 0.0-6.0 08/21/2017 7:0008/21/2017 7: 34am Basophils (%) (Auto) 0.7 % 0.0-1.0 08/21/2017 7:08/21/2017 7:34am IM GRANULOCYTES % 2.8 % H 0.0-1.0 08/21/2017 7:00am 08/21/2017 7:34am Neutrophils # (Auto) 7.0 H 2.1-6.9 08/21/2017 7:00am 08/21/2017 7: 34am Lymphocytes # (Auto) 1.1 1.0-3.2 08/21/2017 7:00am 08/21/2017 7:34am Monocytes # (Auto) 1.1 H 0.2-0.8 08/21/2017 7:00am 08/21/2017 7:34am Eosinophils # (Auto) 0.5 H 0.0-0.4 08/21/2017 7:00am 08/21/2017 7: 34am Basophils # (Auto) 0.1 0.0-0.1 08/21/2017 7:00am 08/21/2017 7:34am Absolute Immature Granulocyte (auto 0.28 x10e3/uL H 0-0.1 08/21/2017 7: 00am 08/21/2017 7:34am Differential Total Cells Counted 100 08/21/2017 7:00am 08/21/2017 10:57am Neutrophils % (Manual) 83 % H 40-74 08/21/2017 7:00am 08/21/2017 10: 57am Band Neutrophils % 4 % 08/14/2017 9:15am 08/14/2017 11:47am Lymphocytes % (Manual) 7 % L 19-48 08/21/2017 7:00am 08/21/2017 10:57am Monocytes % (Manual) 6 % 3.4-9.0 08/21/2017 7:00am 08/21/2017 10:57am Eosinophils % (Manual) 2 % 0-7 08/21/2017 7:00am 08/21/2017 10:57am Basophils % (Manual) 1 % 0-1.5 08/21/2017 7:0008/21/2017 10:57am Reactive Lymphocytes 1 08/21/2017 7:00am 08/21/2017 10:57am Nucleated Red Blood Cells 1 08/14/2017 9:15am 08/14/2017 11:47am Platelet Estimate ADEQUATE 08/21/2017 7:0008/21/2017 10:57am Platelet Morphology Comment NORMAL 08/21/2017 7:00am 08/21/2017 10: 57am Polychromasia FEW 08/14/2017 9:15am 08/14/2017 11:47am Hypochromasia SLIGHT 08/21/2017 7:00am 08/21/2017 10:57am Poikilocytosis SLIGHT 08/21/2017 7:00am 08/21/2017 10:57am Anisocytosis SLIGHT 08/21/2017 7:00am 08/21/2017 10:57am Red Cell Morphology Comment NORMAL 08/21/2017 7:00am 08/21/2017 10: 57am Prothrombin Time 14.1 seconds 11.9-14.5 08/17/2017 9:30am 08/17/2017 9: 51am Prothromb Time International Ratio 1.18 08/17/2017 9:30am 2017 9:51am Oral Anticoagulant Therapy INR Values: 1. Low Intensity Therapy 1.5 - 2.0 2. Moderate Intensity Therapy 2.0 - 3.0 3. High Intensity Therapy(1) 2.5 - 3.5 4. High Intensity Therapy(2) 3.0 - 4.0 5. Panic Value INR > 5.0 Activated Partial Thromboplast Time 43.6 seconds H 23.8-35.5 08/14/2017 9 :15am 08/14/2017 9:41am Sodium Level 133 mmol/L L 136-145 08/21/2017 7:00am 08/21/2017 8:06am Potassium Level 3.8 mmol/L 3.5-5.1 08/21/2017 7:0008/21/2017 8:06am Chloride Level 96 mmol/L L 98-107 08/21/2017 7:00am 08/21/2017 8:06am Carbon Dioxide Level 29 mmol/L 22-29 08/21/2017 7:00am 08/21/2017 8: 06am Anion Gap 11.8 mmol/L 8-16 08/21/2017 7:0008/21/2017 8:06am Blood Urea Nitrogen 28 mg/dL # H 7-08/21/2017 7:00am 08/21/2017 8: 06am verified previous results Creatinine 4.14 mg/dL H 0.57-1.11 08/21/2017 7:00am 08/21/2017 8:06am BUN/Creatinine Ratio 7 6-25 08/21/2017 7:00am 08/21/2017 8:06am Estimat Glomerular Filtration Rate 11 ML/MIN L 60- 08/21/2017 7:00am 8:06am Ranges were taken from the National Kidney Disease Education Program and the National Kid[employer] Foundation literature. Reference ranges: 60 or greater: Normal 16-59 (for 3 consecutive months): Chronic kidney disease 15 or less: Kidney failure Glucose Level 95 mg/dL 74-118 08/21/2017 7:00am 08/21/2017 8:06am Calcium Level 8.8 mg/dL 8.4-10.2 08/21/2017 7:00am 08/21/2017 8:06am Bedside Glucose 97 mg/dL 70-120 08/15/2017 6:22pm 08/15/2017 6:32pm Meter ID: [id number] Lactic Acid Level 7.9 MG/DL 4.5-19.8 08/15/2017 5:50am 08/15/2017 6: 48am Phosphorus Level 2.3 MG/DL 2.3-4.7 08/18/2017 6:30am 08/18/2017 8:16am Magnesium Level 1.9 MG/DL 1.3-2.1 08/21/2017 7:00am 08/21/2017 8:06am Total Bilirubin 0.9 mg/dL 0.2-1.2 08/20/2017 7:3008/20/2017 9:22am Direct Bilirubin 0.3 mg/dL 0.0-0.5 08/20/2017 7:30am 08/20/2017 9:22am Aspartate Amino Transf (AST/SGOT) 44 IU/L H 5-34 08/20/2017 7:30am 08/20 9:22am Alanine Aminotransferase (ALT/SGPT) 26 IU/L 0-55 08/20/2017 7:30am 9:22am Total Protein 6.1 g/dL L 6.5-8.1 08/20/2017 7:30am 08/20/2017 9:22am Albumin 2.1 g/dL L 3.5-5.0 08/20/2017 7:3008/20/2017 9:22am Globulin 3.7 g/dL H 2.3-3.5 08/16/2017 5:54am 08/16/2017 6:57am Albumin/Globulin Ratio 0.6 L 0.8-2.0 08/16/2017 5:54am 08/16/2017 6: 57am Alkaline Phosphatase 423 IU/L H 40-150 08/20/2017 7:30am 08/20/2017 9: 22am B-Type Natriuretic Peptide 870.6 pg/mL H 0-100 08/13/2017 10:33pm 2017 11:28pm Creatine Kinase 316 IU/L H 29-168 08/14/2017 7:03pm 08/14/2017 7:58pm Creatine Kinase MB 1.90 ng/mL 0-4.3 08/14/2017 7:03pm 08/14/2017 7: 27pm Troponin I 0.17 ng/mL 0.0-0.40 08/14/2017 7:03pm 08/14/2017 7:27pm Arterial Blood pH 7.50 H 7.31-7.41 08/13/2017 10:28pm 08/18/2017 10: 44am Arterial Blood Partial Pressure CO2 31 mmHg L 41-51 08/13/2017 10:pm 08/18/2017 10:44am Arterial Blood Partial Pressure O2 349 mmHg H 80-105 08/13/2017 10:08/18/2017 10:44am Arterial Blood HCO3 24 mmol/L -08/13/2017 10:08/18/2017 10: 44am Arterial Blood Base Excess 1.0 mmol/L -2 - 3 08/13/2017 10:2017 10:44am Arterial Blood Oxygen Saturation 100.0 % H 95-98 08/13/2017 10: 10:44am FiO2 100 % 08/13/2017 10:08/18/2017 10:44am DRAWN BY RT ON ANOTHER SHIFT BUT [facility] Hepatitis Be Antigen Negative Negative 08/14/2017 1:15pm 08/15/2017 6 :05pm Performed at: - [facility] [address] [id number] Value Analyst: Nikunj Gil MD, Phone: [phone] Stool Occult Blood POSITIVE H NEGATIVE 08/13/2017 10:47pm 08/13/2017 11:00pm Clostridium Difficile Toxin A & B NEGATIVE NEGATIVE 08/18/2017 11: 08am 08/18/2017 1:25pm Testing on stool aspirate specimens is outside aircraft machin[employer] claims since specimen type not validated on this assay. Microbiology Results Procedure Source Organism/Result Collection Date/Time Result Date/Time Result Status Blood Culture Blood STAPHYLOCOCCUS SP COAG NEG 08/13/2017 10:33pm 2017 8:19am Final Blood Culture Blood NO GROWTH AFTER 5 DAYS, FINAL REPORT 08/14/2017 1:15pm 08/19/2017 1:27pm Final Procedures Procedure Status Date Provider(s) EGD with biopsy Completed 08/15/17 SAFIA KINGSLEY MD Computed tomography of brain without radiopaque contrast Active 08/14/[address] extremity upper wo contrast Active 08/18/17 CHRISTINE QUILES MD Encounters Encounter Location Arrival/Admit Date Discharge/Depart Date Attending Provider Discharged Inpatient [facility] 08/14/17 1:27am 08/21/17 8:48pm SANDRITA SWEET MD
--- NOTE | 2017-09-22 18:31 | Diagnostic Imaging Report ---
PROCEDURE: CHEST SINGLE (PORTABLE) COMPARISON: Patients [facility], DX, SHOULDER LEFT 1 VIEW, 08/18/2017, 13:09. Patients [facility], DX, CHEST SINGLE (PORTABLE), 08/13/2017, 22:40. INDICATIONS: GENERALIZED PAIN FINDINGS: LUNGS: Diffuse groundglass airspace opacities have developed in prominence of the pulmonary vasculature. The left diaphragm is opacified. PLEURA: No large effusions or pneumothorax. HEART \T\ MEDIASTINUM: Stable cardiomegaly and aortic ectasia. BONES \T\ SOFT TISSUES: Mild degenerative changes of the shoulders are stable. There is stable mild flattening and sclerosis of the left humeral head. Osteophytes is in the distal left clavicle is re-demonstrated with superior displacement of a bone fragment at the a.c. joint. Mild glenohumeral dislocation on this projection. Left axillary vascular stent is stable. CONCLUSION: Cardiomegaly and pulmonary vascular congestion. Retrocardiac airspace disease is suggestive of atelectasis or infiltrate. Small effusion cannot be excluded. Posttraumatic changes of the left clavicle and humeral head from dislocation. No evidence of dislocation on this image. Dictated by: Westley Chen M.D. on 09/22/2017 at 18:34 Electronically approved by: Westley Chen M.D. on 09/22/2017 at 18:34
[2017-09-22 21:20] LABS: BASOPHILS # (AUTO) 0.1 (0.0-0.1); BASOPHILS % 1.1 % (0.0-1.0); EOSINOPHILS # (AUTO) 0.1 (0.0-0.4); EOSINOPHILS % 1.4 % (0.0-6.0); HEMATOCRIT 31.7 % (34.2-44.1); HEMOGLOBIN 9.9 g/dL (12.0-16.0); LYMPHOCYTES % 12.3 % (18.0-39.1); MEAN CORPUSCULAR HGB CONC 31.2 g/dL (31-35); MEAN CORPUSCULAR VOLUME 89.5 fL (81-99); MONOCYTES # (AUTO) 0.6 (0.2-0.8); MONOCYTES % 7.5 % (4.4-11.3); NEUTROPHILS # (AUTO) 6.1 (2.1-6.9); NEUTROPHILS % 76.7 % (38.7-80.0); PLATELET COUNT 336 x10e3/uL (140-360); RED BLOOD COUNT 3.54 x10e6/uL (3.6-5.1); RED CELL DISTRIBUTION WIDTH 16.4 % (11.7-14.4)
[2017-09-22 21:25] LABS: INR 1.21; PROTHROMBIN TIME 14.4 seconds (11.9-14.5)
[2017-09-22 21:26] LABS: PARTIAL THROMBOPLASTIN TIME 41.7 seconds (23.8-35.5)
[2017-09-22 21:34] LABS: ALBUMIN 3.2 g/dL (3.5-5.0); ALBUMIN/GLOBULIN RATIO 0.7 (0.8-2.0); ANION GAP 12.8 mmol/L (8-16); CALCIUM 9.9 mg/dL (8.4-10.2); CREATININE, SERUM 2.19 mg/dL (0.57-1.11)
[2017-09-22] MEDS ORDERED: ELIQUIS PO (21:34)
[2017-09-22] MEDS ORDERED: VIT D3 PO (21:34)
[2017-09-22] MEDS ORDERED: ABILIFY5 MG PO (21:34)
[2017-09-22 21:36] LABS: POTASSIUM 2.8 mmol/L (3.5-5.1)
[2017-09-22 21:40] LABS: CREATINE KINASE MB 1.6 ng/mL (0-5.0)
[2017-09-22] MEDS ORDERED: POTASSIUM CHLORIDE 20 MEQ TAB CR PO STA (21:43)
[2017-09-22] MEDS ORDERED: SODIUM CHLORIDE FLUSH 10 ML SYR INJ PRN (21:45)
[2017-09-22] MEDS ORDERED: MORPHINE SULFATE 2 MG/ML SYR IV PRN (21:45)
[2017-09-22] MEDS: ONDANSETRON HCL INJ 2 MG/ML VIAL IV PRN (22:29)
[2017-09-22 23:35] VITALS: BP 158/71
[2017-09-23] VITALS (7 sets, daily range): BP systolic 128–158; BP diastolic 61–79
[2017-09-23 06:42] LABS: ANION GAP 12.3 mmol/L (8-16); CALCIUM 9.5 mg/dL (8.4-10.2); CREATININE, SERUM 2.66 mg/dL (0.57-1.11); POTASSIUM 3.3 mmol/L (3.5-5.1)
[2017-09-23] MEDS: SUCRALFATE 1 GM TAB PO SCH ×4 (07:30→20:44)
[2017-09-23] MEDS ORDERED: NON-FORMULARY MEDICATION (Pravastatin Sodium 1 TAB) PO SCH (09:00)
[2017-09-23] MEDS: CINACALCET 30 MG TAB PO SCH (09:00)
[2017-09-23] MEDS: DULOXETINE HCL 30 MG DELAYED RELEASE PO SCH (09:00)
[2017-09-23] MEDS ORDERED: DULOXETINE HCL PO SCH (09:00)
[2017-09-23] MEDS: LOSARTAN POTASSIUM 100 MG TAB PO SCH (09:00)
[2017-09-23] MEDS: CLONIDINE HCL 0.1 MG TAB PO SCH ×2 (09:00→16:58)
[2017-09-23] MEDS: EZETIMIBE 10 MG TAB PO SCH (09:00)
[2017-09-23] MEDS: CITALOPRAM HYDROBROMIDE 20 MG TAB PO SCH (09:00)
[2017-09-23] MEDS: PANTOPRAZOLE SOD 40 MG TABEC PO SCH (09:00)
[2017-09-23] MEDS: GABAPENTIN 100 MG CAP PO SCH ×2 (09:00→16:58)
[2017-09-23] MEDS: PRAVASTATIN 20 MG TAB PO SCH (09:00)
[2017-09-23] MEDS ORDERED: CEFTRIAXONE SOD 1 GM/NS 50 ML 50 ML IV SCH (13:15)
[2017-09-23] MEDS: CEFTRIAXONE SOD 1 GM VIAL IV SCH (16:55)
[2017-09-23] MEDS: APIXAB 2.5 MG TABLET PO SCH (16:58)
[2017-09-23] MEDS: AMLODIPINE BESYLATE 10 MG TAB PO SCH (16:58)
--- NOTE | 2017-09-23 18:15 | Diagnostic Imaging Report ---
EXAMINATION: CT scan of the chest without contrast. TECHNIQUE: Spiral CT images of the chest were performed from the lung apices to the level of the adrenal glands. No intravenous contrast was administered per physician's request. Coronal and sagittal reformatted images were obtained. COMPARISON: None. CLINICAL HISTORY:Status post fall, chest pain DISCUSSION: ABSENCE OF INTRAVENOUS CONTRAST DECREASES SENSITIVITY FOR DETECTION OF FOCAL LESIONS AND VASCULAR PATHOLOGY. LINES/TUBES: None. LUNGS AND AIRWAYS: Moderate compressive atelectasis of the right lower lobe and mild compressive atelectasis of the right upper lobe. Mild compressive atelectasis of the left upper lobe. Moderate compressive atelectasis in the right lower lobe. Calcified granulomas in the left lower lobe. Focal areas of consolidation with air bronchograms following the bronchovascular bundles in the left lower lobe (for example series 3, image 69). 7 mm pulmonary nodule in the right middle lobe (series 3, image 56). Ground glass opacities bilateral upper and lower lobes, with interlobular septal thickening, predominantly noted in the upper lobes (for example series 3, image 22). Airways are clear, without bronchial lesions. PLEURA: Moderate right pleural effusion. Moderate left pleural effusion, which is likely partly loculated. Partial fluid loculation is noted in the left major fissure (series 2, image 50). HEART AND MEDIASTINUM: Thyroid is unremarkable. Moderate cardiomegaly. Marked atherosclerotic calcification of the aortic valve, coronary arteries and thoracic aorta as well as proximal aortic branches. Ectasia of the ascending thoracic aorta, which measures approximately 3.8 x 3.6 cm . Main pulmonary artery is enlarged, measuring 4.0 cm. LYMPH NODES: Mildly enlarged right upper paratracheal lymph node (series 2, image 27) which measures 1.1 cm in short axis. No other enlarged mediastinal or any enlarged axillary lymph nodes. Difficult to evaluate for hilar adenopathy given the lack of intravenous contrast. ABDOMEN: Limited nonenhanced views of the upper abdomen show no abnormalities in the liver, or spleen. Cholecystectomy clips. Partially visualized 2.3 x 2.5 cm well-circumscribed fluid density structure posterior to the right hepatic lobe, which may arise from the right kidney (series 2, image 110). 1.0 cm solid nodule in the right adrenal gland (series 2, image 103). Left adrenal is unremarkable. Marked atherosclerotic calcification of the abdominal aorta and aortic branches. BONES AND SOFT TISSUES: Generalized osteopenia. No acute, displaced fracture or dislocation. Multilevel degenerative disc changes in the thoracic spine. IMPRESSION: 1. Generalized osteopenia. No acute, displaced fracture or dislocation. 2. Groundglass opacities in bilateral upper and lower lobes with interlobular septal thickening suggest fluid overload/interstitial edema, in the setting of moderate cardiomegaly and bilateral pleural effusions. 3. Moderate bilateral pleural effusions, with the left effusion likely loculated. Associated moderate compressive atelectasis of bilateral lower lobes and mild compressive atelectasis of the upper lobes. 4. Focal areas of consolidation with air bronchograms following the bronchovascular bundles in the left lower lobe likely represent atelectasis, however, superimposed infection/pneumonia is a consideration, in the appropriate clinical setting. 5. Ectasia of the ascending thoracic aorta. Enlarged main pulmonary artery suggesting pulmonary hypertension. 6. Mildly enlarged right upper paratracheal lymph node, likely reactive. 7. 1.0 cm indeterminate right adrenal gland nodule. Signed by: Dr. Byron Florez M.D. on 09/23/2017 6:12 PM
[2017-09-23] MEDS: ARIPIPRAZOLE 2 MG TABLET PO SCH (20:44)
--- NOTE | 2017-09-23 20:54 | History and Physical ---
CHIEF COMPLAINT: Generalized weakness, shortness of breath. HISTORY: A 62-year-old female, who has multiple chronic baseline problem including end-stage renal disease, required dialysis. The patient also has recent GI bleed back in July 2017, where she did receive multiple blood transfusions. She had baseline atrial fibrillation with history of CVA. No significant residual symptoms, but patient has history of lumbar spine surgery back on August 03. She was, subsequently, discharged home on August 21, 2017 after multiple blood transfusions 4 units total and 1 unit of FFP. The patient was previously on Plavix and Eliquis. The patient came in this time because she was having increase in generalized weakness and shortness breath. Patient came in with shortness of breath and weakness. Her potassium level was low. The patient did have dialysis. The patient is, otherwise, feeling comfortable now. She is on 2 L nasal cannula. She does not have any fever. No cough. Patient has no chest pain. PAST MEDICAL HISTORY: Reflux, end-stage renal disease, on dialysis, recurrent electrolyte disorder, hypertension, atrial fibrillation, CVA, his recent GI bleed with blood transfusion, osteoarthritis, congestive heart failure. PAST SURGICAL HISTORY: Left knee surgery, , dialysis catheter, cholecystectomy, left upper extremity fistula dialysis placement, left knee surgery, lumbar spine surgery with Dr. Candelario. SOCIAL HISTORY: Patient lives at home. She does not smoke or use alcohol. No recreational drug use. ALLERGIES: LORAZEPAM. MEDICATIONS: List will be available for review. REVIEW OF SYSTEMS: Generalized weakness. Shortness of breath. Lower back pain stable. PHYSICAL EXAMINATION GENERAL: The patient is not in acute distress. He is awake. VITAL SIGNS: Temperature is 98. Blood pressure 140/78. Pulse rate is 93. Respirations 18. HEENT: Normocephalic, atraumatic. Anicteric. NECK: Supple grossly. PULMONARY: Diminished breath sounds at bases. CARDIOVASCULAR: S1, S2. Regular rhythm. ABDOMEN: Soft, non-distention. BACK: On the lower back area, the patient do have estephania in place. NEUROLOGIC: There is no focal deficit. Moving all extremities. Answering appropriate questions. Chest x-ray showed pulmonary vascular congestion. IMPRESSIONS 1. Acute on chronic congestive heart failure. 2. Hypoxia. 3. Low potassium. 4. Abdominal pain. 5. Pressure wound. PLAN 1. Consult Dr. Shandra Mcdermott for nephrology. 2. Replace electrolytes if needed. 3. PT/OT. 4. Home medication adjustment. 5. Will monitor the patient closely at this time. Job#: [id number] CQ
[2017-09-23] MEDS: ACETAMINOPHEN/CODEINE 300MG - 30MG TAB PO PRN (22:52)
[2017-09-24] VITALS (7 sets, daily range): BP systolic 128–164; BP diastolic 63–81
[2017-09-24 06:00] LABS: BASOPHILS # (AUTO) 0.1 (0.0-0.1); BASOPHILS % 1.1 % (0.0-1.0); EOSINOPHILS # (AUTO) 0.2 (0.0-0.4); EOSINOPHILS % 2.9 % (0.0-6.0); HEMATOCRIT 30.4 % (34.2-44.1); HEMOGLOBIN 9.3 g/dL (12.0-16.0); LYMPHOCYTES # (AUTO) 0.9 (1.0-3.2); LYMPHOCYTES % 12.1 % (18.0-39.1); MEAN CORPUSCULAR HEMOGLOBIN 27.8 pg (28-32); MEAN CORPUSCULAR HGB CONC 30.6 g/dL (31-35); MEAN CORPUSCULAR VOLUME 90.7 fL (81-99); MONOCYTES # (AUTO) 0.5 (0.2-0.8); MONOCYTES % 7.2 % (4.4-11.3); NEUTROPHILS # (AUTO) 5.7 (2.1-6.9); NEUTROPHILS % 75.6 % (38.7-80.0); PLATELET COUNT 288 x10e3/uL (140-360); RED BLOOD COUNT 3.35 x10e6/uL (3.6-5.1); RED CELL DISTRIBUTION WIDTH 16.7 % (11.7-14.4)
[2017-09-24 06:23] LABS: ANION GAP 14.3 mmol/L (8-16); CALCIUM 9.4 mg/dL (8.4-10.2); CREATININE, SERUM 4.03 mg/dL (0.57-1.11); POTASSIUM 3.3 mmol/L (3.5-5.1)
[2017-09-24] MEDS: SUCRALFATE 1 GM TAB PO SCH ×4 (07:30→20:43)
[2017-09-24] MEDS: CLONIDINE HCL 0.1 MG TAB PO SCH ×2 (09:00→16:50)
[2017-09-24] MEDS: CITALOPRAM HYDROBROMIDE 20 MG TAB PO SCH (09:00)
[2017-09-24] MEDS: PANTOPRAZOLE SOD 40 MG TABEC PO SCH (09:00)
[2017-09-24] MEDS: GABAPENTIN 100 MG CAP PO SCH ×2 (09:00→16:51)
[2017-09-24] MEDS: DULOXETINE HCL 30 MG DELAYED RELEASE PO SCH (09:00)
[2017-09-24] MEDS: LOSARTAN POTASSIUM 100 MG TAB PO SCH (09:00)
[2017-09-24] MEDS: EZETIMIBE 10 MG TAB PO SCH (09:00)
[2017-09-24] MEDS: PRAVASTATIN 20 MG TAB PO SCH (09:00)
[2017-09-24] MEDS: APIXAB 2.5 MG TABLET PO SCH ×2 (09:00→16:51)
[2017-09-24] MEDS: CINACALCET 30 MG TAB PO SCH (09:00)
[2017-09-24] MEDS: AZITHROMYCIN 250MG/NS 100 ML 100 ML IV SCH (09:00)
[2017-09-24] MEDS: AMLODIPINE BESYLATE 10 MG TAB PO SCH ×2 (09:00→16:51)
[2017-09-24] MEDS ORDERED: SODIUM CHLORIDE 0.9% 250ML 250 ML ONE (13:21)
[2017-09-24] MEDS: CEFTRIAXONE SOD 1 GM VIAL IV SCH (14:00)
[2017-09-24] MEDS: ONDANSETRON HCL INJ 2 MG/ML VIAL IV PRN (14:22)
[2017-09-24] MEDS: ARIPIPRAZOLE 2 MG TABLET PO SCH (20:43)
[2017-09-25] VITALS (7 sets, daily range): BP systolic 112–150; BP diastolic 59–81
[2017-09-25] MEDS: SUCRALFATE 1 GM TAB PO SCH ×4 (08:07→21:00)
[2017-09-25] MEDS: CLONIDINE HCL 0.1 MG TAB PO SCH ×2 (09:00→17:00)
[2017-09-25] MEDS: APIXAB 2.5 MG TABLET PO SCH ×2 (09:00→17:05)
[2017-09-25] MEDS: LOSARTAN POTASSIUM 100 MG TAB PO SCH (09:00)
[2017-09-25] MEDS: AMLODIPINE BESYLATE 10 MG TAB PO SCH ×2 (09:00→17:00)
[2017-09-25] MEDS: PANTOPRAZOLE SOD 40 MG TABEC PO SCH (09:18)
[2017-09-25] MEDS: GABAPENTIN 100 MG CAP PO SCH ×2 (09:18→17:05)
[2017-09-25] MEDS: PRAVASTATIN 20 MG TAB PO SCH (09:18)
[2017-09-25] MEDS: CITALOPRAM HYDROBROMIDE 20 MG TAB PO SCH (09:18)
[2017-09-25] MEDS: DULOXETINE HCL 30 MG DELAYED RELEASE PO SCH (09:18)
[2017-09-25] MEDS: EZETIMIBE 10 MG TAB PO SCH (09:19)
[2017-09-25] MEDS: CINACALCET 30 MG TAB PO SCH (09:19)
[2017-09-25] MEDS: AZITHROMYCIN 250MG/NS 100 ML 100 ML IV SCH (09:30)
[2017-09-25] MEDS ORDERED: SODIUM CHLORIDE 0.9% 1000ML 2,000 ML ONE (11:28)
[2017-09-25] MEDS: ACETAMINOPHEN/CODEINE 300MG - 30MG TAB PO PRN (12:26)
[2017-09-25] MEDS: CEFTRIAXONE SOD 1 GM VIAL IV SCH (17:17)
--- NOTE | 2017-09-25 19:13 | Consultation ---
DATE OF CONSULTATION: September 25, 2017 Ms. Barber is a 62-year-old female who has multiple medical issues, including history of CVA, coronary artery disease, congestive heart failure, underlying osteoarthritis, diskitis, hypertension, atrial fibrillation, prior CVA, underlying end-stage renal disease, lumbar surgery and disk surgery with Dr. Candelario, history of left knee surgery, prior , and cholecystectomy, came in with shortness of breath, orthopnea and dyspnea on exertion. Currently, awake, alert and mildly short of breath. No apparent distress. No dyspnea noted. ALLERGIES: LORAZEPAM. SOCIAL HISTORY: Does not smoke or drink. CURRENT MEDICATIONS 1. Carafate. 2. Simvastatin. 3. Pravastatin. 4. Pantoprazole. 5. Morphine. 6. Losartan 100 mg daily. 7. Gabapentin 100 mg p.o. b.i.d. 8. Clonidine 0.1 mg p.o. b.i.d. 9. Cinacalcet 60 mg daily. 10. Ceftriaxone. 11. Abilify 2 mg at bedtime. 12. Eliquis 2.5 mg p.o. b.i.d. 13. Amlodipine 10 mg p.o. b.i.d. 14. She has been started on azithromycin. FAMILY HISTORY: Significant for hypertension. LABS: Show white count 7.55, hemoglobin 9.3 with a potassium of 3.3, creatinine 4. PHYSICAL EXAMINATION GENERAL: Awake, alert and laying supine. No apparent distress. VITALS: Blood pressure 130/60, pulse rate 80, respiratory rate 14. HEAD AND NECK: Cornea clear. Mucosa dry. LUNGS: Relatively clear. HEART: S1 and S2 audible. ABDOMEN: Soft and nontender. LOWER EXTREMITY EXAMINATION: Shows no edema. IMPRESSION AND PLAN 1. Underlying fluid overload. 2. Hypertension. 3. End-stage renal disease. PLAN: Arranging for hemodialysis. Hypokalemia noted. I will address that on dialysis. Underlying fluid overload and congestive heart failure. Blood pressure appears stable. Medications reviewed. Underlying secondary hyperparathyroidism. Will resume phosphorus binders. Will obtain Versed as scheduled. For Versed dosage, please see orders. Job#: [id number] CT
[2017-09-25] MEDS: ARIPIPRAZOLE 2 MG TABLET PO SCH (21:00)
[2017-09-26] VITALS: BP 158/72
[2017-09-26] MEDS: SUCRALFATE 1 GM TAB PO SCH ×4 (07:30→21:12)
[2017-09-26] MEDS: DULOXETINE HCL 30 MG DELAYED RELEASE PO SCH (08:28)
[2017-09-26] MEDS: AMLODIPINE BESYLATE 10 MG TAB PO SCH ×2 (08:28→19:14)
[2017-09-26] MEDS: PANTOPRAZOLE SOD 40 MG TABEC PO SCH (08:28)
[2017-09-26] MEDS: CITALOPRAM HYDROBROMIDE 20 MG TAB PO SCH (08:28)
[2017-09-26] MEDS: APIXAB 2.5 MG TABLET PO SCH ×2 (08:28→19:13)
[2017-09-26] MEDS: LOSARTAN POTASSIUM 100 MG TAB PO SCH (08:28)
[2017-09-26] MEDS: CLONIDINE HCL 0.1 MG TAB PO SCH ×2 (08:28→19:14)
[2017-09-26] MEDS: GABAPENTIN 100 MG CAP PO SCH ×2 (08:28→19:13)
[2017-09-26] MEDS: AZITHROMYCIN 250MG/NS 100 ML 100 ML IV SCH (08:29)
[2017-09-26] MEDS: EZETIMIBE 10 MG TAB PO SCH (08:29)
[2017-09-26] MEDS: CINACALCET 30 MG TAB PO SCH (08:29)
[2017-09-26 09:31] VITALS: BP 161/77
[2017-09-26 10:15] VITALS: BP 161/77
[2017-09-26] MEDS: CEFTRIAXONE SOD 1 GM VIAL IV SCH (14:00)
[2017-09-26 16:03] VITALS: BP 144/63
[2017-09-26] MEDS ORDERED: SIMVASTATIN 20 MG TAB PO SCH (21:00)
[2017-09-26] MEDS: ARIPIPRAZOLE 2 MG TABLET PO SCH (21:12)
[2017-09-27] MEDS: ACETAMINOPHEN/CODEINE 300MG - 30MG TAB PO PRN (04:13)
[2017-09-27 07:19] LABS: BASOPHILS # (AUTO) 0.1 (0.0-0.1); BASOPHILS % 1.6 % (0.0-1.0); EOSINOPHILS # (AUTO) 0.3 (0.0-0.4); HEMATOCRIT 30.1 % (34.2-44.1); HEMOGLOBIN 9.2 g/dL (12.0-16.0); LYMPHOCYTES # (AUTO) 1.3 (1.0-3.2); LYMPHOCYTES % 17.2 % (18.0-39.1); MEAN CORPUSCULAR HEMOGLOBIN 27.9 pg (28-32); MEAN CORPUSCULAR HGB CONC 30.6 g/dL (31-35); MEAN CORPUSCULAR VOLUME 91.2 fL (81-99); MONOCYTES # (AUTO) 0.6 (0.2-0.8); MONOCYTES % 7.6 % (4.4-11.3); NEUTROPHILS # (AUTO) 5.2 (2.1-6.9); NEUTROPHILS % 68.4 % (38.7-80.0); PLATELET COUNT 312 x10e3/uL (140-360); RED CELL DISTRIBUTION WIDTH 17.2 % (11.7-14.4)
[2017-09-27] MEDS: SUCRALFATE 1 GM TAB PO SCH ×2 (07:30→12:10)
[2017-09-27 07:33] LABS: ANION GAP 10.8 mmol/L (8-16); CALCIUM 9.7 mg/dL (8.4-10.2); CREATININE, SERUM 4.79 mg/dL (0.57-1.11); POTASSIUM 3.8 mmol/L (3.5-5.1)
[2017-09-27] MEDS ORDERED: SODIUM CHLORIDE 0.9% 1000ML 2,000 ML ONE (07:41)
[2017-09-27 08:15] VITALS: BP 139/99
[2017-09-27] MEDS: AMLODIPINE BESYLATE 10 MG TAB PO SCH (09:00)
[2017-09-27] MEDS: APIXAB 2.5 MG TABLET PO SCH (09:00)
[2017-09-27] MEDS: CLONIDINE HCL 0.1 MG TAB PO SCH (09:00)
[2017-09-27] MEDS: GABAPENTIN 100 MG CAP PO SCH (09:00)
[2017-09-27] MEDS: CITALOPRAM HYDROBROMIDE 20 MG TAB PO SCH (09:00)
[2017-09-27] MEDS ORDERED: COLLAGENASE OINTMENT 30 GM TUBE TP SCH (09:00)
[2017-09-27] MEDS: DULOXETINE HCL 30 MG DELAYED RELEASE PO SCH (09:00)
[2017-09-27] MEDS: LOSARTAN POTASSIUM 100 MG TAB PO SCH (09:00)
[2017-09-27] MEDS ORDERED: ALBUMIN 25% 12.5GM 50 ML IV PRN (09:15)
[2017-09-27] MEDS ORDERED: SODIUM CHLORIDE 0.9% 1000ML 1,000 ML IV PRN (09:15)
[2017-09-27] MEDS ORDERED: MANNITOL 25% 12.5GM/50 ML VIAL IV PRN (09:15)
[2017-09-27 09:34] VITALS: BP 139/99
[2017-09-27] MEDS: EZETIMIBE 10 MG TAB PO SCH (09:34)
[2017-09-27] MEDS: CINACALCET 30 MG TAB PO SCH (09:34)
[2017-09-27] MEDS: PANTOPRAZOLE SOD 40 MG TABEC PO SCH (09:34)
--- NOTE | 2017-09-27 10:05 | Discharge Summary ---
APPRENTICESHIP CONSULTANT: Dr. Shandra Mcdermott FINAL DIAGNOSES 1. [id number] diastolic dysfunction congestive heart failure associated with fluid overload. The patient has an ejection fraction of 55%. 2. End-stage renal disease, on dialysis with volume overload. 3. History of recent spinal surgery. SUMMARY: A 62-year-old female came in with fluid overload. Patient had significant edema. She had pleural effusion. She has [id number] diastolic dysfunction congestive heart failure associated with fluid overload from her dialysis. Apparently, the day on dialysis did not take enough volume. The patient did receive dialysis here. Her dry weight has significantly decreased. The patient is stable. She will go home today. Oxygen has been arranged. She will continue with her home medications. She will follow up with her family doctor within a week for adjustment of his medications and medication reconciliation. Discharged to continue with her outpatient dialysis. Renal diet. Job#: [id number] [place]
[2017-09-27 12:41] VITALS: BP 120/75
[2017-09-27] MEDS ORDERED: AZITHROMYCIN 250MG/NS 100 ML 100 ML IV SCH (13:00)
== END 2017-09-27 14:23 | disposition home health service (06) | DRG 291 ==
LOC: ER 16:11 → ERHOLD 21:45 → MED/SURG2 22:56 → OBSVTOIN 09-23 13:09
PROVIDERS: ADMIT Internal Medicine; ATTEND Internal Medicine
PROC: 5A1D70Z Performance of Urinary Filtration, Intermittent, Less than 6 Hours Per Day (ICD-10-PCS; principal; 2017-09-27)
DX: I13.2 Hypertensive heart and chronic kidney disease with heart failure and with stage 5 chronic kidney disease, or end stage renal disease (principal); I50.33 Acute on chronic diastolic (congestive) heart failure; N18.6 End stage renal disease; N25.81 Secondary hyperparathyroidism of renal origin; Z99.2 Dependence on renal dialysis; R09.02 Hypoxemia; E87.6 Hypokalemia; L89.152 Pressure ulcer of sacral region, stage 2; I48.91 Unspecified atrial fibrillation; Z86.73 Personal history of transient ischemic attack (TIA), and cerebral infarction without residual deficits
CPT/HCPCS: 36415; 71045; 71250; 80048; 80053; 82550; 82553; 82948; 84484; 85025; 85610; 85730; 86704; 86706; 87340; 93005; 93306; 96374; 96375; 97139; 99284; G0378; J0696; J2270; J2405; J7030; J7050

== ENCOUNTER 2017-10-23 05:45 | Emergency (ER) | payer MEDICARE, BC ==
[~2017-10-23] VITALS: Ht 149.9 cm; Wt 75.7 kg
[~2017-10-23 05:45] MED LIST changes: +ABILIFY5 MG PO; +VIT D3 PO
[2017-10-23] MEDS ORDERED: HYDROCODONE/APAP 5MG-325MG TAB PO ONE (08:15)
[2017-10-23] MEDS ORDERED: GABAPENTIN 300 MG CAP PO ONE (08:15)
[2017-10-23 08:48] VITALS: BP 163/78
== END 2017-10-23 08:55 | disposition home or self-care (01) ==
LOC: ER 05:45
DX: M25.572 Pain in left ankle and joints of left foot (principal); G62.9 Polyneuropathy, unspecified; I10 Essential (primary) hypertension; E11.9 Type 2 diabetes mellitus without complications; I51.9 Heart disease, unspecified
CPT/HCPCS: 99283

== ENCOUNTER 2019-06-16 03:34 | Emergency (ER) | payer BC, MEDICARE ==
[~2019-06-16] VITALS: Ht 149.9 cm; Wt 75.3 kg
[~2019-06-16 03:34] MED LIST changes: +BACLOFEN10 MG PO; +GABAPENTIN300 MG PO; +ULTRAM50 MG PO
[2019-06-16] MEDS ORDERED: MORPHINE SULFATE 2 MG/ML SYR 1ML IV STA (04:48)
[2019-06-16] MEDS ORDERED: ONDANSETRON HCL INJ 2MG/ML 2ML 2 MG/ML VIAL IV STA (04:48)
[2019-06-16] MEDS ORDERED: DIATRIZOATE MEGL/DIATRIZOA SOD 30 ML BTL PO ONE (05:15)
[2019-06-16 05:39] LABS: BASOPHILS # (AUTO) 0.1 (0.0-0.1); BASOPHILS % 1.2 % (0.0-1.0); EOSINOPHILS # (AUTO) 0.1 (0.0-0.4); EOSINOPHILS % 1.5 % (0.0-6.0); HEMATOCRIT 36.7 % (34.2-44.1); HEMOGLOBIN 12.1 g/dL (12.0-16.0); LYMPHOCYTES # (AUTO) 1.1 (1.0-3.2); LYMPHOCYTES % 15.9 % (18.0-39.1); MEAN CORPUSCULAR HEMOGLOBIN 30.8 pg (28-32); MEAN CORPUSCULAR VOLUME 93.4 fL (81-99); MONOCYTES # (AUTO) 0.7 (0.2-0.8); MONOCYTES % 9.9 % (4.4-11.3); NEUTROPHILS # (AUTO) 4.8 (2.1-6.9); NEUTROPHILS % 71.2 % (38.7-80.0); PLATELET COUNT 294 x10e3/uL (140-360); RED BLOOD COUNT 3.93 x10e6/uL (3.6-5.1); RED CELL DISTRIBUTION WIDTH 14.2 % (11.7-14.4)
[2019-06-16 05:54] LABS: ALBUMIN 3.6 g/dL (3.5-5.0); ALBUMIN/GLOBULIN RATIO 0.8 (0.8-2.0); ANION GAP 18.2 mmol/L (8-16); CALCIUM 10.1 mg/dL (8.4-10.2); CREATININE, SERUM 5.12 mg/dL (0.57-1.11); POTASSIUM 4.2 mmol/L (3.5-5.1)
[2019-06-16 05:56] LABS: CREATINE KINASE MB 2.1 ng/mL (0-5.0)
[2019-06-16 06:07] LABS: AMYLASE 77 U/L (25-125); LIPASE 31 U/L (8-78)
--- NOTE | 2019-06-16 06:59 | Diagnostic Imaging Report ---
CT Abdomen and Pelvis without contrast INDICATION: Left side abdominal pain, ^oral contrast only, left abd pain with diarrhea ^[id number] ^25 ^Y TECHNIQUE: Thin collimation axial images obtained from the diaphragm to the level of the pubic symphysis without nonionic intravenous contrast. Enteric contrast was administered. Dose reduction techniques used: Automated exposure control, adjustment of the mAs and/or kVp according to patient size, standardized low-dose protocol, and/or iterative reconstruction technique. RADIATION DOSE: Total DLP: 688.48 mGy*cm Estimated effective dose: (DLP x 0.015 x size factor) mSv CTDIvol has been reviewed. It is below the limits set by the Radiation Protocol Committee (RPC). COMPARISON: CT chest 09/23/2017. ABDOMEN FINDINGS: Lung Bases: The heart is enlarged with heavy calcifications of the coronary arteries and aorta. Groundglass nodule in the middle lobe measures 8 mm and is stable. Patchy groundglass airspace opacities in the lung bases could be due to a combination of small airways disease or chronic pulmonary edema. Liver: Normal in attenuation without mass. Gallbladder: Absent. No ductal dilatation. Pancreas: Normal attenuation without mass. Spleen: Normal size without mass. Adrenal Glands: Right adrenal adenoma measures 1.3 x 1.1 cm and 10 Hounsfield units. This is stable. Left adrenal gland is normal. Kidneys: Right: Markedly atrophic with multiple cysts of varying sizes and attenuations. No hydronephrosis. Left: Markedly atrophic with multiple cysts of varying sizes and attenuations. No hydronephrosis. 2 calculi in the lower pole each measure 5 mm. Lymph Nodes: No lymphadenopathy. Aorta: Heavy calcifications of the aorta and visceral arteries. No aneurysmal dilatation PELVIS FINDINGS: Bowel: Stomach: Normal. Small Bowel: Normal in diameter with normal wall thickness.. Large Bowel: Scattered diverticula. No associated inflammation. The large bowel is collapsed. No pericolonic inflammation. Appendix: Normal. Bladder: Underdistended. Ureters: No ureteral dilatation or calculus. The uterus is absent. No adnexal mass. Peritoneum/retroperitoneum: No free fluid or fluid collection.. Bones: Height loss and sclerosis of the L3 and L4 vertebral bodies with mild retrolisthesis. Flowing anterior osteophytes of the thoracic and upper lumbar spine are suggestive of DISH. Lytic lesions in the right femoral head and the right and left femoral necks. No pathologic fractures. Increased attenuation of the skeleton suggestive of renal osteodystrophy. Soft tissues: Unremarkable. IMPRESSION: 1. Diverticulosis coli. No evidence for bowel obstruction or inflammation. Normal appendix. 2. Sclerosis and height loss of the L3 and L4 vertebral bodies may be the result of discitis/osteomyelitis. Lytic lesions in the femurs may be secondary to hyperparathyroidism. 3. Atrophic kidneys with multiple renal cysts. Recommend evaluation with renal ultrasound to exclude a solid mass. Nonobstructing left intrarenal calculi. 4. Cardiomegaly and severe atherosclerosis. Small airways disease or chronic pulmonary edema. A subcentimeter pulmonary nodule is stable. 5. Stable right adrenal adenoma. Signed by: Dr. Westley Chen MD on 06/16/2019 6:57 AM
--- NOTE | 2019-06-16 07:00 | NUR ---
RECEIVED BEDSIDE REPORT, PATIENT C/O OF CHRONIC RIGHT LOWER LEG CRAMPING. HER IS MASSAGING HER LEG TO RELEIVE PAIN. DR. ESTRADA AWARE. PATIENT RECEIVED MORPHINE FOR ABDOMINAL PAIN WHICH IS NOW 0/10. IT IS THE LEG CRAMPING THAT IS BOTHERING HER. HE WANTS TO WAIT TO GIVING HER TRAMADOL UNTILL CT REPORT IS BACK
[2019-06-16] MEDS ORDERED: TRAMADOL HCL 50 MG TAB PO ONE (07:15)
== END 2019-06-16 07:44 | disposition home or self-care (01) ==
LOC: ER 03:34
DX: R10.84 Generalized abdominal pain (principal); R10.12 Left upper quadrant pain; R10.32 Left lower quadrant pain; R19.7 Diarrhea, unspecified; I12.0 Hypertensive chronic kidney disease with stage 5 chronic kidney disease or end stage renal disease; N18.6 End stage renal disease; Z99.2 Dependence on renal dialysis; I25.10 Atherosclerotic heart disease of native coronary artery without angina pectoris
CPT/HCPCS: 36415; 74176; 80053; 82150; 82550; 82553; 83690; 84484; 85025; 93005; 96374; 96375; 99284; J2270; J2405

== ENCOUNTER 2019-06-24 20:23 | Emergency (ER) | payer MEDICARE, BC ==
[~2019-06-24] VITALS: Ht 149.9 cm; Wt 75.3 kg
[2019-06-24] MEDS ORDERED: IBUPROFEN 600 MG TAB ONE (21:15)
[2019-06-24] MEDS ORDERED: IBUPROFEN 600 MG TAB PO STA (21:18)
[2019-06-24] MEDS ORDERED: ONDANSETRON HCL 4 MG ORAL DISINTEGRATING TAB ONE (21:19)
[2019-06-24] MEDS ORDERED: ONDANSETRON HCL 4 MG ORAL DISINTEGRATING TAB PO ONE (21:30)
[2019-06-24 21:33] LABS: STREPTOCOCCUS GRP A ANTIGEN NEGATIVE (NEGATIVE)
[2019-06-24 21:43] LABS: INFLUENZAE A&B ANTIGEN (RAPID) NEGATIVE (NEGATIVE)
--- NOTE | 2019-06-24 22:20 | Diagnostic Imaging Report ---
EXAMINATION: CHEST 2 VIEWS INDICATION: ^COUGH COMPARISON: Abdominal CT 06/15/2019, chest x-ray 05/02/2019 FINDINGS: TUBES and LINES: The left subclavian vascular stent is kinked, unchanged compared to 05/02/2019 LUNGS: Normal lung volumes. Lungs are clear. Prominent central pulmonary vasculature. PLEURA: No pleural effusion or pneumothorax. HEART AND MEDIASTINUM: Cardiac size is mildly enlarged. There are atherosclerotic calcifications within the aorta. BONES AND SOFT TISSUES: Degenerative changes in the spine and shoulders. Soft tissues are unremarkable. UPPER ABDOMEN: No free air under the diaphragm. IMPRESSION: Mild cardiomegaly and pulmonary vascular congestion. The left subclavian vascular stent is kinked, unchanged compared to 05/02/2019 Signed by: Tanmay Monroy DO on 06/24/2019 10:17 PM
[2019-06-25 00:20] VITALS: BP 129/83
== END 2019-06-25 00:15 | disposition home or self-care (01) ==
LOC: ER 20:23
DX: R05 Cough (principal); B34.9 Viral infection, unspecified
CPT/HCPCS: 71046; 83518; 87070; 87400; 99283; Q0162